=== PATIENT | female | born 1960 | race Caucasian/White ===

== ENCOUNTER 2018-04-17 20:15 | Observation (INO) | payer BC, OTHER, SELFPAY ==
--- OUTSIDE RECORDS SUMMARY | 2018-04-17 20:17 | XMS REPORT | Clinical Summary ---
:1960 Author Organization [facility] Address [address] [place] [address] Care Team Providers Name Role Phone Ken Lloyd MD Primary Care Provider Allergies Active Allergy Reactions Severity Noted Date Comments Tetracycline Anaphylaxis High Medications Medication Sig Dispensed Refills Start Date End Date Status PROVENTIL HFA 90 INHALE 2 PUFFS BY 3 10/17/2017 Active mcg/actuation MOUTH 4 TIMES inhaler DAILY SYMBICORT 0 10/17/2017 Active 160-4.5 mcg/actuation inhaler mirabegron DAILY 0 05/31/2017 Active (MYRBETIQ) 50 mg tablet extended release 24 hr meloxicam Take 15 mg by 0 10/17/2017 Active (MOBIC) 15 mg mouth daily. tablet QSYMIA 15-92 mg TAKE ONE CAPSULE 2 09/22/2017 11/10/2017 Discontinued capsule, ER BY MOUTH EVERY multiphase 24 hr DAY FOR APPETITE SUPPRESSION Active Problems Not on file Encounters Date Type Specialty Care Team Description 11/10/2017 Surgery General Surgery Matilda Mooney LUMBAR EPIDURAL STEROID INJECTION RIGHT L4-5, L5-S1 11/10/2017 Anesthesia Event General Surgery Serena Lozano FNP 11/10/2017 Hospital Encounter General Surgery Matilda Mooney MD after 04/16/2017 Social History Tobacco Use Types Packs/Day Years Used Date Current Every Day Smoker Cigarettes 0.5 20 Smokeless Tobacco: Never Used Alcohol Use Drinks/Week oz/Week Comments Yes occasional Sex Assigned at Date Recorded Not on file Job Start Date Occupation Industry Not on file Not on file Not on file Travel History Travel Start Travel End No recent travel history available. Last Filed Vital Signs Vital Sign Reading Time Taken Blood Pressure 148/66 11/10/2017 10:00 AM CDT Pulse 55 11/10/2017 10:15 AM CDT Temperature 36.6 C (97.8 F) 11/10/2017 8:54 AM CDT Respiratory Rate 18 11/10/2017 10:00 AM CDT Oxygen Saturation 98% 11/10/2017 10:15 AM CDT Inhaled Oxygen Concentration - - Weight 79.4 kg (175 lb) 11/10/2017 7:03 AM CDT Height 154.9 cm (5' 1") 11/10/2017 7:03 AM CDT Body Mass Index 33.07 11/10/2017 7:03 AM CDT Plan of Treatment Health Maintenance Due Date Last Done Comments MMR VACCINES (1 of 1 - Standard 10/17/1963 series) VARICELLA VACCINES (1 of 2 - 2-dose 10/17/1975 adolescent series) CERVICAL CANCER SCREENING 10/17/1983 BREAST CANCER SCREENING 2012 COLON CANCER SCREENING 2012 SHINGRIX VACCINE (1 of 2) 2012 INFLUENZA VACCINE 01/04/2018 HEPATITIS B VACCINES Aged Out No longer eligible based on patient's age to complete this topic IPV VACCINES Aged Out No longer eligible based on patient's age to complete this topic MENINGOCOCCAL VACCINE Aged Out No longer eligible based on patient's age to complete this topic Procedures Procedure Name Priority Date/Time Associated Diagnosis Comments OR FL < 1 HOUR Routine 11/10/2017 8:40 AM Results for this CDT procedure are in the results section. after 04/16/2017 Results OR FL < 1 Hour (11/10/2017 8:40 AM CDT) Narrative Performed At EXAMINATION:OR [place] 1 HOUR [facility] CLINICAL HISTORY: IMPRESSION: Fluoroscopy was provided. No radiologist present.Please see procedure report for discussion of procedure, findings and fluoroscopic time. [facility]-[id number] Procedure Note Interface, Radiology Results Incoming - 11/10/2017 10:26 AM CDT EXAMINATION: OR [place] 1 HOUR CLINICAL HISTORY: IMPRESSION: Fluoroscopy was provided. No radiologist present. Please see procedure report for discussion of procedure, findings and fluoroscopic time. [facility]-[id number] Performing Organization Address City/State/Zipcode Phone Number [facility] [address] [place] [address] after 04/16/2017 Insurance Payer Benefit Plan / Group Subscriber ID Type Phone Address BCBS BCBS CHOICE PPO/FEDERAL EMPL PPO xxxxxxxxxxxx PPO Advance Directives Patient has advance care planning documents on file. For more information, please contact:Juanjo Childress[address] [place] [address]
[2018-04-17] MEDS ORDERED: ASPIRIN 81 MG CHEWABLE TABLET ONE (20:51)
[2018-04-17] MEDS ORDERED: NA CHLORIDE 0.9% 1,000 ML ONE (20:52)
[2018-04-17] MEDS ORDERED: METOPROLOL TAR 25 MG TAB ONE (20:52)
[2018-04-17] MEDS ORDERED: ENOXAPARIN 100 MG/ML SYR SQ ONE (20:52)
[2018-04-17 21:17] LABS: ALT/SGPT 31 U/L (12-78); AST/SGOT 19 U/L (15-37); Albumin 4.2 g/dL (3.4-5.0); Alkaline Phosphatase 102 U/L (45-117); BUN Blood Urea Nitrogen 14 mg/dL (7-18); Bicarbonate 22 mmol/L (21-32); Bilirubin Direct 0.1 mg/dL (0-0.2); Bilirubin Total 0.5 mg/dL (0.2-1.0); Glucose Level 94 mg/dL (74-106); Lipase 123 U/L (73-393); Magnesium 2.1 mg/dL (1.8-2.4); NT PRO-BNP 61 pg/mL (<125); Potassium 3.7 mmol/L (3.5-5.1); Protein, Total 7.9 g/dL (6.4-8.2); Sodium Level 138 mmol/L (136-145); Troponin (Emerg Dept Use Only) < 0.02 ng/mL (0.0-0.045)
[2018-04-17 21:36] LABS: Absolute Lymphocytes (CBC) 3.1 K/uL (0.7-4.9); Absolute Monocytes 0.5 K/uL (0.1-1.3); Absolute Neutrophil 4.7 K/uL (1.8-8.0); Basophils % 0.8 % (0-1.3); Eosinophils % 1.1 % (0-4.4); Hematocrit 41.1 % (36.0-45.0); Lymphocytes % 36.9 % (15.3-44.8); MCH 31.4 pg (27.0-35.0); MCV 93.4 fL (80-100); MPV 9.3 fL (7.6-11.3); Monocytes % 5.7 % (3.3-12.3); RBC Red Blood Cell Count 4.41 M/uL (3.86-4.86)
--- NOTE | 2018-04-17 21:38 | RAD REPORT ---
EXAM DESCRIPTION: Jessy Single View04/17/2018 8:47 pm CLINICAL HISTORY: Chest pain COMPARISON: 2013 FINDINGS: The lungs appear clear of acute infiltrate. The heart is normal size IMPRESSION: No acute abnormalities displayed
--- NOTE | 2018-04-17 21:43 | EDPHYS ---
Physician Documentation [facility] Name: Salome Walsh Age: 57 yrs Sex: Female : 1960 Arrival Date: 04/17/2018 Time: 20:16 Bed 25 Private MD: ED Physician Js Rodriguez HPI: 04/17 21:33 This 57 yrs old Female presents to ER via Ambulatory with complaints of Chest benjie Pain. 21:33 The patient or guardian reports chest pain that is located primarily in the substernal benjie area, anterior chest wall, left. Onset: just prior to arrival. The pain radiates to jaw, Associated signs and symptoms: The patient has no apparent associated signs or symptoms. The chest pain is described as dull, a heaviness, stabbing. Duration: The patient or guardian reports a single episode, that is now resolved. Modifying factors: The symptoms are alleviated by nothing. the symptoms are aggravated by nothing. Severity of pain: At its worst the pain was mild moderate in the emergency department the pain has resolved and did so just prior to arrival. The patient has experienced similar episodes in the past, a few times. 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 - Social history:: Smoking status: Patient uses tobacco products, denies chronic smoking, but will smoke occasionally, Patient uses alcohol, but reports only rare drinking. Patient/guardian denies using street drugs. - Ebola Screening: : No symptoms or risks identified at this time. - Family history:: not pertinent. ROS: 21:33 Constitutional: Negative for fever, chills, and weight loss, Eyes: Negative for injury, benjie pain, redness, and discharge, ENT: Negative for injury, pain, and discharge, Neck: Negative for injury, pain, and swelling, Respiratory: Negative for shortness of breath, cough, wheezing, and pleuritic chest pain, Abdomen/GI: Negative for abdominal pain, nausea, vomiting, diarrhea, and constipation, Back: Negative for injury and pain, : Negative for injury, bleeding, discharge, and swelling, MS/Extremity: Negative for injury and deformity, Skin: Negative for injury, rash, and discoloration, Neuro: Negative for headache, weakness, numbness, tingling, and seizure, Psych: Negative for depression, anxiety, suicide ideation, homicidal ideation, and hallucinations, Allergy/Immunology: Negative for hives, rash, and allergies, Endocrine: Negative for neck swelling, polydipsia, polyuria, polyphagia, and marked weight changes, Hematologic/Lymphatic: Negative for swollen nodes, abnormal bleeding, and unusual bruising. 21:33 Cardiovascular: Positive for chest pain, of the chest. Exam: 21:33 Constitutional: This is a well developed, well nourished patient who is awake, alert, benjie and in no acute distress. Head/Face: Normocephalic, atraumatic. Eyes: Pupils equal round and reactive to light, extra-ocular motions intact. Lids and lashes normal. Conjunctiva and sclera are non-icteric and not injected. Cornea within normal limits. Periorbital areas with no swelling, redness, or edema. ENT: Nares patent. No nasal discharge, no septal abnormalities noted. Tympanic membranes are normal and external auditory canals are clear. Oropharynx with no redness, swelling, or masses, exudates, or evidence of obstruction, uvula midline. Mucous membranes moist. Neck: Trachea midline, no thyromegaly or masses palpated, and no cervical lymphadenopathy. Supple, full range of motion without nuchal rigidity, or vertebral point tenderness. No Meningismus. Chest/axilla: Normal chest wall appearance and motion. Nontender with no deformity. No lesions are appreciated. Cardiovascular: Regular rate and rhythm with a normal S1 and S2. No gallops, murmurs, or rubs. Normal PMI, no JVD. No pulse deficits. Respiratory: Lungs have equal breath sounds bilaterally, clear to auscultation and percussion. No rales, rhonchi or wheezes noted. No increased work of breathing, no retractions or nasal flaring. Abdomen/GI: Soft, non-tender, with normal bowel sounds. No distension or tympany. No guarding or rebound. No evidence of tenderness throughout. Back: No spinal tenderness. No costovertebral tenderness. Full range of motion. Female : Normal external genitalia. Skin: Warm, dry with normal turgor. Normal color with no rashes, no lesions, and no evidence of cellulitis. MS/ Extremity: Pulses equal, no cyanosis. Neurovascular intact. Full, normal range of motion. Neuro: Awake and alert, GCS 15, oriented to person, place, time, and situation. Cranial nerves II-XII grossly intact. Motor strength 5/5 in all extremities. Sensory grossly intact. Cerebellar exam normal. Normal gait. Psych: Awake, alert, with orientation to person, place and time. Behavior, mood, and affect are within normal limits. 21:33 Musculoskeletal/extremity: DVT Exam: No signs of deep vein thrombosis. no pain, no swelling, no tenderness, negative Homans' sign noted on exam, no appreciated bluish discoloration, no erythema, no increased warmth. Vital Signs: 20:30 BP 145 / 84; Pulse 74; Resp 16 S; Temp 97.9(O); Pulse Ox 100% on R/A; Weight 86.18 kg bb (R); Height 5 ft. 1 in. (154.94 cm) (R); Pain 10/10; 21:30 BP 138 / 73 RA Sitting (auto/reg); Pulse 60; Resp 16 S; Pulse Ox 100% on R/A; jp3 22:19 BP 143 / 75; Pulse 53; Resp 17; Pulse Ox 99% on R/A; rr5 23:00 BP 125 / 80; Pulse 55; Resp 17; Pulse Ox 99% on R/A; Pain 0/10; rr5 20:30 Body Mass Index 35.90 (86.18 kg, 154.94 cm) MDM: 20:30 Patient medically screened. [facility] 21:35 Data reviewed: vital signs, nurses notes, lab test result(s), EKG, radiologic studies, [facility] CT scan, plain films. 04/17 20:34 Order name: Basic Metabolic Panel [facility] 04/17 20:34 Order name: CBC with Diff [facility] 04/17 20:34 Order name: LFT's [facility] 04/17 20:34 Order name: Magnesium; Complete Time: 21:32 [facility] 04/17 20:34 Order name: NT PRO-BNP; Complete Time: 21:32 [facility] 04/17 20:34 Order name: PT-INR [facility] 04/17 20:34 Order name: Troponin (emerg Dept Use Only); Complete Time: 21:32 [facility] 04/17 20:34 Order name: XRAY Chest (1 view) [facility] 04/17 20:34 Order name: Lipase; Complete Time: 21:32 [facility] 04/17 20:34 Order name: D-Dimer [facility] 04/17 20:35 Order name: Basic Metabolic Panel; Complete Time: 21:32 [facility] 04/17 20:35 Order name: Liver (Hepatic) Function; Complete Time: 21:32 [facility] 04/17 21:04 Order name: Urine Dipstick--Ancillary (enter results) em 04/17 21:41 Order name: Echo with Doppler [facility] 04/17 20:34 Order name: EKG; Complete Time: 20:35 [facility] 04/17 20:34 Order name: Cardiac monitoring; Complete Time: 20:40 [facility] 04/17 20:34 Order name: EKG - Nurse/Tech; Complete Time: 20:41 [facility] 04/17 20:34 Order name: IV Saline Lock; Complete Time: 20:42 [facility] 04/17 20:34 Order name: Labs collected and sent; Complete Time: 20:42 [facility] 04/17 20:34 Order name: O2 Per Protocol; Complete Time: 20:41 [facility] 04/17 20:34 Order name: O2 Sat Monitoring; Complete Time: 20:41 [facility] 04/17 20:35 Order name: Urine Dipstick-Ancillary (obtain specimen); Complete Time: 21:00 [facility] 04/17 21:41 Order name: CONS Physician Consult EDMS Administered Medications: 20:50 Drug: Aspirin Chewable Tablet 324 mg Route: PO; rr5 23:34 Follow up: Response: No adverse reaction rr5 20:50 Drug: Lopressor 25 mg Route: PO; rr5 23:34 Follow up: Response: No adverse reaction rr5 20:55 Drug: Lovenox 1 mg/kg Route: Sub-Q; Site: left lower abdomen; rr5 23:34 Follow up: Response: No adverse reaction rr5 21:00 Drug: NS 0.9% 1000 ml Route: IV; Rate: 125 ml/hr; Site: left antecubital; rr5 23:00 Follow up: IV Status: Infusion continued upon admission; IV Intake: 400ml rr5 Disposition: 04/17/18 21:37 Hospitalization ordered by Sonia Fang for Observation. Preliminary diagnosis are Other chest pain, Essential (primary) hypertension, Tobacco abuse counseling, Tobacco use. - Bed requested for Telemetry/MedSurg (observation). - Status is Observation. rr5 - Condition is Stable. - Problem is new. - Symptoms have improved. UTI on Admission? No Signatures: Dispatcher [employer] EDJs Pascal MD MD cha Ballard, Brenda, RN RN Catarina Ennis RN RN Geovanny Ferrer RN RN rr5 Corrections: (The following items were deleted from the chart) 21:49 21:37 Hospitalization Ordered by Sonia Fang MD for Observation. Preliminary cg diagnosis is Other chest pain; Essential (primary) hypertension; Tobacco abuse counseling; Tobacco use. Bed requested for Telemetry/MedSurg (observation). Status is Observation. Condition is Stable. Problem is new. Symptoms have improved. UTI on Admission? No. [facility] 23:33 21:49 04/17/2018 21:37 Hospitalization Ordered by Sonia Fang MD for Observation. rr5 Preliminary diagnosis is Other chest pain; Essential (primary) hypertension; Tobacco abuse counseling; Tobacco use. Bed requested for Telemetry/MedSurg (observation). Status is Observation. Condition is Stable. Problem is new. Symptoms have improved. UTI on Admission? No. cg
--- NOTE | 2018-04-17 21:43 | ER ---
Nurse's Notes [facility] Name: Salome Walsh Age: 57 yrs Sex: Female : 1960 Arrival Date: 04/17/2018 Time: 20:16 Bed 25 Private MD: Diagnosis: Other chest pain;Essential (primary) hypertension;Tobacco abuse counseling;Tobacco use Presentation: 04/17 20:27 Presenting complaint: Patient states: she started having sharp chest pain approx 20 bb mins ago radiating to her back and right jaw with SOB, pt denies nausea, light-headedness. Transition of care: patient was not received from another setting of care. Onset of symptoms was April 17, 2018. Risk Assessment: Do you want to hurt yourself or someone else? Patient reports no desire to harm self or others. Initial Sepsis Screen: Does the patient meet any 2 criteria? No. Patient's initial sepsis screen is negative. Does the patient have a suspected source of infection? No. Patient's initial sepsis screen is negative. Care prior to arrival: aspirin 81 mg x 1. 20:27 Method Of Arrival: Ambulatory bb 20:27 Acuity: FRED 3 bb Triage Assessment: 21:15 General: Appears in no apparent distress. comfortable, Behavior is calm, cooperative. rr5 21:15 Pain: Complains of pain in chest Pain radiates to back and right jaw Pain currently is rr5 5 out of 10 on a pain scale. Quality of pain is described as aching. EENT: No signs and/or symptoms were reported regarding the EENT system. Neuro: Level of Consciousness is awake, alert, obeys commands, Oriented to person, place, time, situation. Cardiovascular: Reports chest pain, Capillary refill < 3 seconds Patient's skin is warm and dry. Respiratory: Airway is patent. GI: No signs and/or symptoms were reported involving the gastrointestinal system. : No signs and/or symptoms were reported regarding the genitourinary system. Derm: Skin is intact, Skin is dry, Skin is pink, warm \T\ dry. Musculoskeletal: No signs and/or symptoms reported regarding the musculoskeletal system. Capillary refill < 3 seconds, Range of motion: intact in all extremities. 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 - Social history:: Smoking status: Patient uses tobacco products, denies chronic smoking, but will smoke occasionally, Patient uses alcohol, but reports only rare drinking. Patient/guardian denies using street drugs. - Ebola Screening: : No symptoms or risks identified at this time. - Family history:: not pertinent. Screenin:40 Abuse screen: Denies threats or abuse. Denies injuries from another. Nutritional rr5 screening: No deficits noted. Tuberculosis screening: No symptoms or risk factors identified. Fall Risk Total Abel Fall Scale indicates No Risk (0-24 pts). Assessment: 21:15 General: Appears in no apparent distress. comfortable, Behavior is calm, cooperative. rr5 21:15 Pain: Complains of pain in chest Pain radiates to back and right jaw Pain currently is rr5 5 out of 10 on a pain scale. Quality of pain is described as aching, Pain began 1 hour ago. Is intermittent, Aggravated by increased activity. Neuro: Level of Consciousness is awake, alert, obeys commands, Oriented to person, place, time, situation. Cardiovascular: Reports chest pain, Capillary refill < 3 seconds Patient's skin is warm and dry. Respiratory: Airway is patent. GI: No signs and/or symptoms were reported involving the gastrointestinal system. : No signs and/or symptoms were reported regarding the genitourinary system. EENT: No signs and/or symptoms were reported regarding the EENT system. Derm: No signs and/or symptoms reported regarding the dermatologic system. Musculoskeletal: Capillary refill < 3 seconds, Range of motion: intact in all extremities. 23:00 Reassessment: Patient appears in no apparent distress at this time. Patient and/or rr5 family updated on plan of care and expected duration. Pain level reassessed. Patient is alert, oriented x 3, equal unlabored respirations, skin warm/dry/pink. no complaints made, in comfortable lying position. Patient denies pain at this time. Patient states feeling better. Patient states symptoms have improved. Vital Signs: 20:30 BP 145 / 84; Pulse 74; Resp 16 S; Temp 97.9(O); Pulse Ox 100% on R/A; Weight 86.18 kg bb (R); Height 5 ft. 1 in. (154.94 cm) (R); Pain 10/10; 21:30 BP 138 / 73 RA Sitting (auto/reg); Pulse 60; Resp 16 S; Pulse Ox 100% on R/A; jp3 22:19 BP 143 / 75; Pulse 53; Resp 17; Pulse Ox 99% on R/A; rr5 23:00 BP 125 / 80; Pulse 55; Resp 17; Pulse Ox 99% on R/A; Pain 0/10; rr5 20:30 Body Mass Index 35.90 (86.18 kg, 154.94 cm) bb ED Course: 20:16 Patient arrived in ED. al2 20:28 Triage completed. bb 20:30 Js Rodriguez MD is Attending Physician. benjie 20:30 Arm band placed on Patient placed in an exam room, on a stretcher, on pulse oximetry. bb EKG completed in triage. Results shown to MD. Family accompanied patient. 20:30 EKG done, by ED staff, reviewed by Js Rodriguez MD. cb2 20:35 nurse monitoring on. Pulse ox on. NIBP on. cb2 20:38 Geovanny Ferrer RN is Primary Nurse. rr5 20:40 Initial lab(s) drawn, by me, sent to lab. Inserted saline lock: 22 gauge in left cb2 antecubital area, using aseptic technique. Blood collected. 20:45 Placed in gown. Bed in low position. Call light in reach. Side rails up X 1. Side rails cb2 up X2. Warm blanket given. Pillow given. 20:47 XRAY Chest (1 view) In Process Unspecified. EDMS 21:01 LFT's Sent. jp3 21:01 Basic Metabolic Panel Sent. jp3 21:01 CBC with Diff Sent. jp3 21:01 Magnesium Sent. jp3 21:01 NT PRO-BNP Sent. jp3 21:01 PT-INR Sent. jp3 21:01 Troponin (emerg Dept Use Only) Sent. jp3 21:34 D-Dimer Sent. jp3 21:36 Sonai Fang MD is Hospitalizing Provider. benjie 21:40 IV discontinued, positional, patients discomfort. Patient maintains SpO2 saturation rr5 greater than 95% on room air. 22:00 Inserted saline lock: 20 gauge in right hand, using aseptic technique. rr5 23:02 No provider procedures requiring assistance completed. Patient admitted, IV remains in rr5 place. Administered Medications: 20:50 Drug: Aspirin Chewable Tablet 324 mg Route: PO; rr5 23:34 Follow up: Response: No adverse reaction rr5 20:50 Drug: Lopressor 25 mg Route: PO; rr5 23:34 Follow up: Response: No adverse reaction rr5 20:55 Drug: Lovenox 1 mg/kg Route: Sub-Q; Site: left lower abdomen; rr5 23:34 Follow up: Response: No adverse reaction rr5 21:00 Drug: NS 0.9% 1000 ml Route: IV; Rate: 125 ml/hr; Site: left antecubital; rr5 23:00 Follow up: IV Status: Infusion continued upon admission; IV Intake: 400ml rr5 Intake: 23:00 IV: 400ml; Total: 400ml. rr5 Outcome: 21:37 Decision to Hospitalize by Provider. benjie 23:10 Admitted to Tele accompanied by tech, via stretcher, Report called to wilmar GARCÍA rr5 23:10 Condition: stable 23:10 Instructed on the need for admit. 23:33 Patient left the ED. rr5 Signatures: Dispatcher [employer] EDMS Js Rodriguez MD MD cha Ballard, Brenda, RN RN Jose Armando Brown Angelica al2 Pisarski, Jacob jp3 Geovanny Ferrer RN RN rr5 Corrections: (The following items were deleted from the chart) 22:22 21:15 Pain: Complains of pain in chest Pain does not radiate. Pain currently is 5 out rr5 of 10 on a pain scale. Quality of pain is described as aching, rr5 23:08 21:15 Pain: Complains of pain in chest Pain radiates to face left jaw Pain currently is rr5 5 out of 10 on a pain scale. Quality of pain is described as aching, rr5 23:09 21:15 Pain: Complains of pain in chest Pain radiates to left arm and left jaw Pain rr5 currently is 5 out of 10 on a pain scale. Quality of pain is described as aching, Pain began 1 hour ago. Is intermittent, Aggravated by increased activity, rr5
[2018-04-17 21:56] LABS: Urine Blood NEGATIVE (NEG); Urine Glucose NEGATIVE (NEG); Urine Protein NEGATIVE (NEG); Urine pH 5.5 (5.0-7.0)
[2018-04-17 22:12] LABS: Protime INR 0.94
--- NOTE | 2018-04-17 22:59 | P.HP ---
Certification for Inpatient Patient admitted to: Observation With expected LOS: <2 Midnights Practitioner: I am a practitioner with admitting privileges, knowledge of patient current condition, hospital course, and medical plan of care. Services: Services provided to patient in accordance with Admission requirements found in Title 42 Section 412.3 of the Code of Federal Regulations Patient History Date of Service: 04/17/18 Reason for admission: Chest pain History of Present Illness: Ms Walsh is a 57-year-old woman who came to ER complaining of chest pain. Her symptoms started 20 min prior to arrival, she described pressure-like retrosternal chest pain, radiated to left arm, jaw and back. Intensity of the pain was 10/10. She has never had these symptoms before. She denied any nausea , vomiting, or shortness of breath. At the time of my encounter the patient was chest pain-free. EKG shows nonspecific ST-T abnormalities. Initial troponin I is negative. Allergies Tetracyclines Allergy (Intermediate, Verified 06/01/17 07:13) Anaphylaxis Home medications list reviewed: Yes Home Medications: Albuterol [Proventil] 2 puff IH QID 12/26/12 Budesonide/Formoterol Fumarate [Symbicort 160-4.5 Mcg Inhaler] 2 puff IH BID Mirabegron [Myrbetriq] 50 mg PO DAILY 05/31/17 Omeprazole 20 mg PO DAILY 05/31/17 Phentermine/Topiramate [Qsymia 3.75 mg-23 mg Capsule] 1 each PO DAILY 05/31/17 Polyethylene Glycol 3350 [Miralax] 17 gm PO DAILY 05/31/17 - Past Medical/Surgical History -: Asthma -: Palpitation -: Hysterectomy -: -: Back surgery - Family History Family History: Reviewed- Non-Contributory - Social History Smoking Status: Current every day smoker Counseled patient to stop smoking for: less than 10 minutes Alcohol use: Yes Caffeine use: Yes Place of Residence: Home Review of Systems 10-point ROS is otherwise unremarkable Physical Examination - Physical Exam General: Alert, In no apparent distress HEENT: Atraumatic, PERRLA, Mucous membr. moist/pink, EOMI, Sclerae nonicteric Neck: Supple, 2+ carotid pulse no bruit, No LAD, Without JVD or thyroid abnormality Respiratory: Clear to auscultation bilaterally, Normal air movement Cardiovascular: Regular rate/rhythm, Normal S1 S2 Gastrointestinal: Normal bowel sounds, No tenderness Musculoskeletal: No tenderness Integumentary: No rashes Neurological: Normal gait, Normal speech, Normal strength at 5/5 x4 extr, Normal tone, Normal affect Lymphatics: No axilla or inguinal lymphadenopathy - Studies Laboratory Data (last 24 hrs) 04/17/18 20:40: PT 11.1, INR 0.94 04/17/18 20:40: WBC 8.5, Hgb 13.8, Hct 41.1, Plt Count 281 04/17/18 20:40: Sodium 138, Potassium 3.7, BUN 14, Creatinine 0.80, Glucose 94, Magnesium 2.1, Total Bilirubin 0.5, AST 19, ALT 31, Alkaline Phosphatase 102, Lipase 123 Assessment and Plan - Problems (Diagnosis) (1) Chest pain Current Visit: Yes Status: Acute Qualifiers: Chest pain type: precordial pain Qualified Code(s): R07.2 - Precordial pain (2) Asthma Current Visit: Yes Status: Acute Qualifiers: Asthma severity: unspecified severity Asthma persistence: unspecified Asthma complication type: unspecified Qualified Code(s): J45.909 - Unspecified asthma, uncomplicated - Plan Will admit the patient due to typical chest pain. Initial troponin I is negative , EKG shows nonspecific ST-T abnormality. Will order serial cardiac enzymes, EKG, echo, vault installer evaluation. Discharge Plan: Home - Advance Directives Does patient have a Living Will: No Does patient have a Durable POA for Healthcare: No - Code Status/Comfort Care Code Status Assessed: Yes Code Status: Full Code
[2018-04-17] MEDS ORDERED: ACETAMINOPHEN 500 MG TAB PO PRN (23:40)
[2018-04-17] MEDS ORDERED: ONDANSETRON 4 MG/2 ML VIAL IV PRN (23:40)
[2018-04-17 23:45] VITALS: BMI 37.0
[2018-04-18 02:29] LABS: Urine Appearance CLEAR; Urine Bilirubin NEGATIVE (NEG); Urine Blood NEGATIVE (NEG); Urine Color YELLOW; Urine Glucose NEGATIVE (NEG); Urine Protein NEGATIVE (NEG); Urine Specific Gravity <=1.005 (1.005-1.030); Urine Urobilinogen 0.2 mg/dL (0.2-1.0)
[2018-04-18 02:34] LABS: Urine Microscopic Reflex ORDER UMIC
[2018-04-18 02:36] LABS: Urine Bacteria <20 /HPF (<20); Urine Culture Reflex Order NOT NEEDED; Urine RBC NONE SEEN /HPF (NONE SEEN)
--- NOTE | 2018-04-18 07:14 | EKG ---
Test Date: 2018-04-17 Test Time: 20:26:27 Operator Technician: SHABNAM MEASUREMENT RESULTS: Intervals: Rate: 74 MT: 154 QRSD: 92 QT: 394 QTc: 437 Slater: P: 39 MT: 154 QRS: 13 T: 50 INTERPRETIVE STATEMENTS: Normal sinus rhythm Nonspecific ST and T wave abnormality Abnormal ECG Compared to ECG 06/01/2017 10:36:51 ST (T wave) deviation now present Sinus bradycardia no longer present Electronically Signed On 04-18-18 07:13:29 [employer] by Silvano Chambers
[2018-04-18] MEDS ORDERED: INFLUENZA VACCINE (for 3y+) 0.5 ML DOSE IMVAC ONE (08:00)
[2018-04-18] MEDS: ASPIRIN 81 MG CHEWABLE TABLET PO SCH (08:00)
[2018-04-18] MEDS: ENOXAPARIN 40 MG/0.4 ML SQ SCH (08:00)
[2018-04-18 09:40] LABS: Absolute Lymphocytes (CBC) 3.1 K/uL (0.7-4.9); Absolute Monocytes 0.4 K/uL (0.1-1.3); Absolute Neutrophil 2.4 K/uL (1.8-8.0); Eosinophils % 2.3 % (0-4.4); Hematocrit 41.6 % (36.0-45.0); Lymphocytes % 50.3 % (15.3-44.8); MCH 31.4 pg (27.0-35.0); MCV 92.6 fL (80-100); MPV 9.1 fL (7.6-11.3); Monocytes % 7.3 % (3.3-12.3); RBC Red Blood Cell Count 4.49 M/uL (3.86-4.86)
[2018-04-18 11:06] LABS: Blood Morphology Comment NOT SEEN (NOT SEEN); Platelet Estimate ADEQ
--- NOTE | 2018-04-18 13:13 | CON ---
Date of Consultation: 04/18/[address] Barboza's service for chest pain on 04/17/2018. I saw the patient on 04/18/2018. History Of Present Illness: Ms. Walsh is a 57-year-old white woman without any past cardiac history or medical history. She does smoke and has a family history of heart disease. She came in with kristie p chest pain in the middle of her chest that radiated to the back and radiated to the back of the nec k. No nausea, vomiting, diaphoresis, shortness of breath, PND, orthopnea, pedal edema, palpitations, or syncope. She has already had a negative EKG, negative chest x-ray, negative troponin. She is on aspirin, Lovenox, and metoprolol for now. Telemetry is normal. She is allergic to tetracycline. Past Medical History: Include asthma and palpitations. Medications: At home include Symbicort and inhalers. Family History: Positive for heart disease in her father in his 50s. Social History: Positive for tobacco. Physical Examination: Vital Signs: She weighed 196 pounds. Vital signs were stable. Afebrile. HEENT: Negative. Neck: Supple with no bruit. Chest: Clear to auscultation and percussion. Cardiac: Revealed a regular rhythm and rate without any murmurs, gallops, or rubs. Abdomen: Benign. Extremities: Revealed no clubbing, cyanosis, or edema. Diagnostic Data: All normal. Impression And Plan: Atypical chest pain, 30 minutes duration, normal enzymes, normal x-ray and EKG. Pain radiated to the back. Could be gastroesophageal reflux disease or spasm. I am concerned that it has radiated to her neck. I think we need to get an echocardiogram and a stress Cardiolite befor e she goes home. KOBI/RADHIKA Voice ID: [id number] Report ID: [id number]
--- NOTE | 2018-04-18 15:02 | EKG ---
Test Date: 2018-04-18 Test Time: 07:34:28 Back Tender Insulation Board: ALEX MEASUREMENT RESULTS: Intervals: Rate: 53 NE: 206 QRSD: 86 QT: 444 QTc: 416 [place]: P: 69 NE: 206 QRS: 34 T: 101 INTERPRETIVE STATEMENTS: Sinus bradycardia Nonspecific ST and T wave abnormality Abnormal ECG Compared to ECG 04/17/2018 20:26:27 Sinus rhythm no longer present ST (T wave) deviation still present Electronically Signed On 04-18-18 15:00:55 P[employer]YER by Joce Cloud
--- NOTE | 2018-04-18 15:13 | ECHO ---
HEIGHT: 5 ft 1 in WEIGHT: 196 lb 1.6 oz DATE OF STUDY: 04/18/[address]: Js Rodriguez MD 2-DIMENSIONAL: YES M.MODE: YES DOPPLER: YES COLOR FLOW: YES TDS: PORTABLE: DEFINITY: BUBBLE STUDY: DIAGNOSIS: CHEST PAIN CARDIAC HISTORY: CATHERIZATION: NO SURGERY: NO PROSTHETIC VALVE: NO PACEMAKER: NO MEASUREMENTS (cm) DIASTOLIC (NORMALS) SYSTOLIC (NORMALS) IVSd 1.0 (0.6-1.2) LA Diam 3.7 (1.9-4.0) LVEF 66% LVIDd 4.8 (3.5-5.7) LVIDs 3.1 (2.0-3.5) %FS 36% LVPWd 1.0 (0.6-1.2) Ao Diam 2.9 (2.0-3.7) 2 DIMENSIONAL ASSESSMENT: RIGHT ATRIUM: NORMAL LEFT ATRIUM: NORMAL RIGHT VENTRICLE: NORMAL LEFT VENTRICLE: NORMAL TRICUSPID VALVE: NORMAL MITRAL VALVE: NORMAL PULMONIC VALVE: NORMAL AORTIC VALVE: NORMAL PERICARDIAL EFFUSION: NONE AORTIC ROOT: NORMAL LEFT VENTRICULAR WALL MOTION: NORMAL DOPPLER/COLOR FLOW: TRACE AORTIC REGURGITATION, AND TRICUSPID REGURGITATION. COMMENTS: TRACE TRICUSPID REGURGITATION, AND AORTIC REGURGITATION. NORMAL LEFT VENTRICULAR SIZE AND FUNCTION. NO WALL MOTION ABNORMALITY. NO EFFUSION. TECHNOLOGIST: ELVIA PEOPLES
--- NOTE | 2018-04-18 15:28 | PN ---
Date of Progress Note: 04/18/2018 Subjective: Patient seen and examined. Chart reviewed and case discussed with RN. The patient states her chest pain has improved. Review of Systems: Negative except as above. Medications: List reviewed. Physical Examination: Vital Signs: Temperature 97.2, heart rate 51, blood pressure 116/60, respirations 20, O2 97% on room air. General: Awake, alert, oriented x3. She appears older than stated age, ill- appearing female, obese. CV: S1, S2. Regular rate and rhythm. No murmurs. Respiratory: Clear to auscultation bilaterally. No wheezing or stridor. Gastrointestinal: Abdomen is soft, nontender, nondistended. Positive bowel sounds. Extremities: No clubbing, cyanosis, or edema. Neurologic: Nonfocal. Laboratory Data: Troponin less than 0.02 x3. Triglyceride 117, cholesterol 180 , LDL 102, HDL 55. WBC 6.2, H and H 14.1 and 41.6, platelets 270, neutrophils 39%. Assessment: A 57-year-old female with: 1. Chest pain, acute coronary syndrome ruled out. 2. Intermittent asthma. We will continue with albuterol inhalers. 3. Obesity, BMI 37.1. 4. Possible sick sinus syndrome. The patient has had Holter monitor placement previously. Follows with Dr. Saldana. No abnormality seen. Plan: We will obtain cardiac stress test and echocardiogram. Appreciate Dr. Cloud's input. We will continue to monitor on cardiac telemetry. Continue chest pain guidelines. Patient is bradycardic. Hold beta marv. Likely discharge once stress test is negative. JHONNY Voice ID: [id number] Report ID: [id number] MTDD
[2018-04-18] MEDS: HOME MED 1 EA UNK (Budesonide/Formoterol Fumarate [Symbicort 160-4.5 Mcg Inhaler] 2 PUFF) IH SCH (20:13)
[2018-04-18] MEDS: HOME MED 1 EA UNK (Varenicline Tartrate [Chantix] 1 MG) PO SCH (20:14)
[2018-04-18] MEDS ORDERED: ALBUTEROL IH SCH (21:00)
[2018-04-19 02:02] VITALS: O2SAT 98
[2018-04-19] MEDS: ASPIRIN 81 MG CHEWABLE TABLET PO SCH (08:03)
[2018-04-19] MEDS: ENOXAPARIN 40 MG/0.4 ML SQ SCH (08:03)
[2018-04-19] MEDS ORDERED: REGADENOSON 0.4 MG/5 ML SYR IV ONE (08:30)
[2018-04-19] MEDS ORDERED: HOME MED 1 EA UNK (Linaclotide [Linzess] 290 MCG) PO SCH (09:00)
[2018-04-19] MEDS: HOME MED 1 EA UNK (Varenicline Tartrate [Chantix] 1 MG) PO SCH (09:00)
[2018-04-19] MEDS: HOME MED 1 EA UNK (Budesonide/Formoterol Fumarate [Symbicort 160-4.5 Mcg Inhaler] 2 PUFF) IH SCH (09:00)
--- NOTE | 2018-04-19 10:04 | RAD REPORT ---
EXAM DESCRIPTION: NM - Rest Stress Cardiac Imaging - 04/19/2018 9:55 am CLINICAL HISTORY: CP Chest pain. COMPARISON: No comparisons TECHNIQUE: The patient was administered approximately 10mCi of Tc 99m Sestamibi prior to resting SPE CT imaging of the heart. The patient was then administered approximately 30 mCi of Tc 99m Sestamibi f ollowing exercise or pharmacologic stress. Multiplanar SPECT images were reviewed. FINDINGS: No stress induced ischemic defect is seen to suggest stress induced ischemia. No fixed def ect is seen to suggest hibernating myocardium or scarred myocardium. The end diastolic volume is 84 ml, the end systolic volume is 35 ml, and the ejection fraction is 58 %. IMPRESSION: No stress induced ischemia.
[2018-04-19 10:51] VITALS: TEMP 97.6
--- NOTE | 2018-04-19 11:33 | TREADPHA ---
DX: CHEST PAIN Date of Study: 04/19/2018 Ht: 5 1 Wt: 196 lb 0 oz Consulting Physician: JAVED MEDICATIONS: TYLENOL, ASPIRIN, LOVENOX, ZOFRAN HISTORY: 57 YEAR OLD FEMALE WITH COMPLAINTS OF CHEST PAIN. MEDICAL HISTORY OF ASTHMA, PALPITATIONS AND A SMOKER OF ONE PACK A DAY. PHYSICIAL EXAMINATION: RESTING B.P.: 109/80 RESTING H.R.: 56 RESTING EKG: SINUS BRADYCARDIA, OTHERWISE NORMAL PROTOCOL: LEXISCAN EXERCISE TIME: 3:30 B.P. AT PEAK STRESS: 114/88 IMPRESSION: LEXISCAN INJECTED. CARDIOLITE INJECTED PER PROTOCOL. SEE NUCLEAR MEDICINE REPORT. NO SUPRAVENTRICUALR OR VENTRICULAR TACHYCARDIA. NO CHEST PAIN NOTED. NON DIAGNOSTIC EKG LEXISCAN STRESS.
[2018-04-19 12:23] VITALS: BP 117/68
--- NOTE | 2018-04-20 14:13 | DS ---
Date of Discharge: 04/19/2018 Consultants: Silvano Chambers MD, with Cardiology Procedures: Cardiac stress test on 04/19/2018, negative for a stress-induced ischemia; echocardiogra m, EF 66%. Discharge Diagnoses: 1.Chest pain, acute coronary syndrome ruled out. 2.Gastroesophageal reflux disease. We will give trial of PPI. 3.Acute asthma. Continue albuterol inhaler. 4.Obesity, BMI 37.1. 5.Palpitations. The patient has had previous Holter monitor placement with no abnormalities seen, lukas patel with Dr. Saldana. Hospital Course: The patient is a 57-year-old female with past medical history of asthma, palpitatio ns, gastroesophageal reflux disease, comes in with chest pain. The patient was admitted to rule out ACS. Her cardiac enzymes were negative. Lipid panel was within normal limits. D-dimer was also neg ative. The patient was seen by Cardiology. A stress test was ordered which did not show any stress- induced ischemia. Her ejection fraction was normal. She did have some mild tricuspid regurgitation. The patient does report gastroesophageal reflux disease, recently stopped taking her Zantac on a re gular basis, takes it as needed. The patient has seen Dr. Sarkar in the past and has had a colonosco py and EGD done last over a year ago. The patient will need a trial of PPI as her chest pain may be atypical related to her GI symptoms. If the patient has improvement with PPIs, she will need to foll ow up with her GI doctor for repeat EGD and continue treatment under his discretion. The patient was then cleared for discharge. Her symptoms resolved. The patient was sent home in a stable condition . Activity: As tolerated. Medications: As per medication reconciliation list. Followup: Follow up with primary care physician in 2 to 3 days. Follow up with warp starter, Dr. Abdiel myles in 2 weeks. Follow up with GI, Dr. Sarkar in 2 to 4 weeks. Return to ER for worsening conditi on. Physical Examination: General: Awake, alert, oriented x3, not in acute distress. Obese female. CV: S1 and S2. No murmurs. Respiratory: Moving air well bilaterally. No wheezing. Gastrointestinal: Abdomen is soft, nontender, and nondistended. Positive bowel sounds. Extremities: No clubbing, cyanosis, or edema. Neuro: Nonfocal. SA/MODL Voice ID: [id number] Report ID: [id number]
== END 2018-04-19 13:59 | disposition home or self-care (01) ==
LOC: ER 20:15 → ERHOLD 21:38 → 4TH 23:11
PROVIDERS: ADMIT Internal Medicine; ATTEND Internal Medicine
DX: R07.9 Chest pain, unspecified (principal); K21.9 Gastro-esophageal reflux disease without esophagitis; J45.20 Mild intermittent asthma, uncomplicated; E66.9 Obesity, unspecified; Z68.37 Body mass index [BMI] 37.0-37.9, adult; R00.2 Palpitations
CPT/HCPCS: 36415; 71045; 78452; 80048; 80061; 80076; 81003; 81015; 83690; 83735; 83880; 84484; 85025; 85379; 85610; 93005; 93017; 93306; 96360; 96361; 96372; 99285; A9500; G0378; J1650; J2785; J7030

== ENCOUNTER 2018-11-07 06:09 | Day surgery (SDC) | payer BC ==
[2018-11-06 14:02] LABS: Urine Appearance CLEAR; Urine Bilirubin NEGATIVE (NEG); Urine Blood NEGATIVE (NEG); Urine Color YELLOW; Urine Glucose NEGATIVE (NEG); Urine Protein NEGATIVE (NEG); Urine Specific Gravity 1.015 (1.005-1.030); Urine Urobilinogen 0.2 mg/dL (0.2-1.0); Urine pH 5.5 (5.0-7.0)
[2018-11-06 14:05] LABS: Urine Microscopic Reflex NO UMIC
[~2018-11-07 06:09] MED LIST: Ringers Lactate 1,000 ML IV SCH
--- OUTSIDE RECORDS SUMMARY | 2018-11-07 06:11 | XMS REPORT | Clinical Summary ---
:1960 Author Organization [facility] Address [address] [place] [address] Care Team Providers Name Role Phone Ken Lloyd MD Primary Care Provider Allergies Active Allergy Reactions Severity Noted Date Comments Tetracycline Anaphylaxis High Medications Medication Sig Dispensed Refills Start Date End Date Status PROVENTIL HFA 90 INHALE 2 PUFFS BY 3 10/17/2017 Active mcg/actuation MOUTH 4 TIMES inhaler DAILY SYMBICORT 0 10/17/2017 Active 160-4.5 mcg/actuation inhaler UNABLE TO FIND Take by mouth 0 Active once. Med Name: Qysimia mirabegron DAILY 0 05/31/2017 06/19/2018 Discontinued (MYRBETIQ) 50 mg tablet extended release 24 hr QSYMIA 15-92 mg TAKE ONE CAPSULE 2 09/22/2017 11/10/2017 Discontinued capsule, ER BY MOUTH EVERY multiphase 24 hr DAY FOR APPETITE SUPPRESSION meloxicam Take 15 mg by 0 10/17/2017 06/19/2018 Discontinued (MOBIC) 15 mg mouth daily. 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) 05/18/2018 Telephone Radiology Nisha Bonilla, RAQUEL 05/15/2018 Hospital Encounter Radiology Uvaldo Rubalcava Spinal stenosis lester Hernandez MD lumbar region, unspecified whether neurogenic claudication present 05/15/2018 Hospital Encounter Radiology Uvaldo Rubalcava Spinal stenosis lester Hernandez MD lumbar region, unspecified whether neurogenic claudication present 05/11/2018 Office Visit Orthopedic Surgery Leif Beltran, Trochanteric bursitis of both hips (Primary Dx) 05/08/2018 Transcribe Orders Radiology Uvaldo Rubalcava Spinal stenosis lester Hernandez MD lumbar region, unspecified whether neurogenic claudication present (Primary Dx) 05/08/2018 Transcribe Orders Radiology Uvaldo Rubalcava Spinal stenosis lester Hernandez MD lumbar region, unspecified whether neurogenic claudication present (Primary Dx) 11/10/2017 Surgery General Surgery Matilda Mooney MD LUMBAR EPIDURAL STEROID INJECTION RIGHT L4-5, L5-S1 11/10/2017 Anesthesia Event General Surgery Serena Lozano WORM RAISER 11/10/2017 Hospital Encounter General Surgery Matilda Mooney MD after 11/06/2017 Family History Medical History Relation Name Comments Heart attack Father Stroke Paternal Uncle Relation Name Status Comments Father Paternal Uncle Social History Tobacco Use Types Packs/Day Years Used Date Former Smoker Cigarettes 0.5 20 Smokeless Tobacco: Never Used Comments: recently quit in April, Alcohol Use Drinks/Week oz/Week Comments Yes occasional Sex Assigned at Date Recorded Not on file Job Start Date Occupation Industry Not on file Not on file Not on file Travel History Travel Start Travel End No recent travel history available. Last Filed Vital Signs Vital Sign Reading Time Taken Blood Pressure 125/67 05/15/2018 11:09 AM BUILDING SERVICES SUPERVISOR Pulse 60 05/15/2018 11:09 AM BUILDING SERVICES SUPERVISOR Temperature 36.5 C (97.7 F) 05/15/2018 8:36 AM BUILDING SERVICES SUPERVISOR Respiratory Rate 16 05/15/2018 11:09 AM BUILDING SERVICES SUPERVISOR Oxygen Saturation 100% 05/15/2018 11:09 AM BUILDING SERVICES SUPERVISOR Inhaled Oxygen Concentration - - Weight 86.2 kg (190 lb) 05/15/2018 8:36 AM BUILDING SERVICES SUPERVISOR Height 157.5 cm (5' 2") 05/15/2018 8:36 AM BUILDING SERVICES SUPERVISOR Body Mass Index 34.75 05/15/2018 8:36 AM BUILDING SERVICES SUPERVISOR Plan of Treatment Health Maintenance Due Date Last Done Comments BREAST CANCER SCREENING 2012 COLON CANCER SCREENING 2012 SHINGLES VACCINES (#1) 2012 INFLUENZA VACCINE 01/04/2019 Procedures Procedure Name Priority Date/Time Associated Diagnosis Comments ECG PRE/POST OP Routine 06/19/2018 12:22 Results for this PM [employer]ILDING SERVICES SUPERVISOR procedure are in the results section. ESTIMATED GFR Routine 06/19/2018 12:14 Results for this PM [employer] SERVICES SUPER[employer]OR procedure are in the results section. HC COMPLETE BLD COUNT Routine 06/19/2018 12:14 Cerebral aneurysm, Results for this W/AUTO DIFF PM [employer]ILDING SERVICES SUPERVISOR nonruptured procedure are in the results section. BASIC METABOLIC PANEL Routine 06/19/2018 12:14 Cerebral aneurysm, Results for this PM [employer]ING SERVICES SUPERVISOR nonruptured procedure are in the results section. PARTIAL THROMBOPLASTIN Routine 06/19/2018 12:14 Cerebral aneurysm, Results for this TIME (PTT) PM BUILDING SERVICES SUPERVISOR nonruptured procedure are in the results section. PROTHROMBIN TIME WITH Routine 06/19/2018 12:14 Cerebral aneurysm, Results for this INR PM [employer]ILDING SERVICES SUPER[employer]OR nonruptured procedure are in the results section. CT HEAD EXTERNAL STUDY Routine 05/18/2018 9:06 Results for this AM [employer]ING SERVICES SUPERVISOR procedure are in the results section. CT POST MYELOGRAM Routine 05/15/2018 10:14 Spinal stenosis of Results for this LUMBAR AM [employer]ILDING SERVICES SUPERVISOR lumbar region, procedure are in unspecified whether the results neurogenic section. claudication present IR MYELOGRAM LUMB INCL Routine 05/15/2018 10:05 Spinal stenosis of Results for this INJ W S&I AM BUILDING SERVICES SUPERVISOR lumbar region, procedure are in unspecified whether the results neurogenic section. claudication present XR PELVIS 3+ VW Routine 05/11/2018 8:52 Pain of both hip Results for this AM BUILDING SERVICES SUPERVISOR joints procedure are in the results section. OR FL < 1 HOUR Routine 11/10/2017 8:40 Results for this AM CDT procedure are in the results section. after 11/06/2017 Results ECG Pre/Post Op (06/19/2018 12:22 PM BUILDING SERVICES SUPERVISOR) Ventricular rate 68 [facility] Atrial rate 68 [facility] MN interval 162 [facility] QRSD interval 84 [facility] QT interval 406 [facility] QTC interval 431 [facility] P axis 1 52 [facility] QRS axis 1 28 [facility] T wave axis 77 [facility] EKG impression Normal sinus rhythm-Nonspecific T wave abnormality-Abnormal ECG -In automated comparison with ECG of 27-FEB-2013 08:16,-Nonspecific T wave abnormality, improved in Anterior leads-QT has shortened-Electronically Signed By Padilla Varghese ([id number]) on [facility] 06/19/2018 9:15:48 PM Specimen Narrative Performed At Performing Organization Address City/[facility]/Zipcode Phone Number [facility] [address] [place] [address] Estimated GFR (06/19/2018 12:14 PM BUILDING SERVICES SUPERVISOR) Pathologist [facility] Estimated GFR 89 mL/min/1.73 ANAM MCNAMARA Comment: [address] CatergoryUnitsInterpretation G1 >=90 Normal or high G2 60-89Mildly decreased [id number] to moderately decreased [id number] to severely decreased G4 15-29Severely decreased G5 <15Kidney failure The eGFR was calculated using the Chronic Kidney Disease Epidemiology Collaboration (CKD-EPI) equation. Interpretation is based on recommendations of the National Kidney Foundation-Kidney Disease Outcomes Quality Initiative (NKF-KDOQI) published in 2014. Specimen Plasma specimen Performing Organization Address City/[facility] Phone Number [facility] DEPARTMENT OF PATHOLOGY AND [address] [place] [address] [address] Partial thromboplastin time, activated (06/19/2018 12:14 PM BUILDING SERVICES SUPERVISOR) Pathologist [facility] PTT 27.4 23.0 - 36.0 [place] NAIMA Comment: [facility] PTT therapeutic range for unfractionated heparin is 61.0-112.0 seconds which corresponds to Anti-Xa 0.3-0.7 U/ml. Specimen Blood Performing Organization Address City/[facility]/Zipcode Phone Number [facility] DEPARTMENT OF PATHOLOGY AND [address] [place] [address] [address] Prothrombin time with INR (06/19/2018 12:14 PM BUILDING SERVICES SUPERVISOR) Pathologist [facility] Prothrombin time 12.2 11.5 - 14.5 [facility] INR 0.9 [place] Comment: NAIMA The International Normalized Ratio (INR) is a therapeutic HOSPITAL monitoring tool for patients who are stable on oral anticoagulant therapy. An INR of 2.0-3.0 is suggested for deep vein thrombosis/pulmonary embolism. Specimen Blood Performing Organization Address City/[facility]/Zipcode Phone Number [facility] DEPARTMENT OF PATHOLOGY AND [address] [place] [address] [address] CBC with platelet and differential (06/19/2018 12:14 PM BUILDING SERVICES SUPERVISOR) WBC 5.57 4.50 - 11.00 [facility] k/uL HOSPITAL RBC 4.56 4.20 - 5.50 [facility] m/uL [facility] HGB 13.9 12.0 - 16.0 [facility] g/dL HOSPITAL HCT 43.9 37.0 - 47.0 % [facility] MCV 96.3 82.0 - 100.0 [facility] MCH 30.5 27.0 - 34.0 pg [facility] MCHC 31.7 31.0 - 37.0 [facility] RDW - SD 48.0 37.0 - 55.0 fL [facility] MPV 10.7 8.8 - 13.2 fL [facility] Platelet count 281 150 - 400 k/uL [facility] Nucleated RBC 0.00 /100 WBC [facility] Neutrophils 50.1 39.0 - 69.0 % [facility] Lymphocytes 40.0 25.0 - 45.0 % [facility] Monocytes 6.1 0.0 - 10.0 % [facility] Eosinophils 3.1 0.0 - 5.0 % [facility] Basophils 0.5 0.0 - 1.0 % [facility] Immature granulocytes 0.2Comment: 0.0 - 1.0 % [facility] "Immature HOSPITAL granulocytes" (promyelocytes , myelocytes, metamyelocytes ) Specimen Blood Performing Organization Address City/State/Zipcode Phone Number [facility] DEPARTMENT OF PATHOLOGY AND [address] [place] [address] [address] Basic metabolic panel (06/19/2018 12:14 PM BUILDING SERVICES SUPERVISOR) Pathologist [facility] Sodium 138 135 - 148 mEq/L [facility] Potassium 4.6 3.5 - 5.0 mEq/L [facility] Chloride 102 98 - 112 mEq/L [facility] CO2 24 24 - 31 mEq/L [facility] Anion gap 12@ANIO 7 - 15 mEq/L [facility] BUN 14 6 - 20 mg/dL [facility] Creatinine 0.75 0.50 - 0.90 mg/dL [facility] Glucose 89 65 - 99 mg/dL [facility] Calcium 9.7 8.3 - 10.2 mg/dL [facility] Specimen Plasma specimen Performing Organization Address City/State/Zipcode Phone Number [facility] DEPARTMENT OF PATHOLOGY AND [address] [place] [address] GENOMIC MEDICINE [facility] [address] [place] [address] CT Head External Study (05/18/2018 9:06 AM BUILDING SERVICES SUPERVISOR) Specimen Narrative Performed At This exam was not acquired at a [facility] facility and has not been [facility] interpreted by a [facility] Provider.The exam was imported into our imaging system for comparisons purposes. Performing Organization Address City/[facility] Phone Number [facility] [address] [place] [address] CT Post Myelogram Lumbar (05/15/2018 10:14 AM BUILDING SERVICES SUPERVISOR) Specimen Narrative Performed At EXAMINATION: CT POST MYELOGRAM LUMBAR [facility] CLINICAL HISTORY: M48.061 Spinal stenosislumbar region without neurogenic claudication, lumbar stenosis COMPARISON:None TECHNIQUE: Axial postintrathecal contrast enhanced images of the spine were obtained with coronal and sagittal MIP reconstructed imaging. CT imaging was performed with iterative reconstruction technique and/or automated exposure control to reduce radiation dose. FINDINGS: Soft tissue shows some scattered lymph nodes in the retroperitoneum which are subcentimeter in size and nonspecific. No grossly enlarged adenopathy, mass or fluid identified. The aorta is nonaneurysmal. Vertebral body heights are preserved. There is no acute fracture. The distal spinal cord and conus are intact. Alignment is normal. The cauda equina nerve roots are normal in morphology. There is no clumping, thickening or displacement. The thecal sac is patent without stenosis. At L1-L2 there is no abnormality. At L2-L3 there is minimal disc bulge and facet hypertrophy without stenosis. The foramina are widely patent. At L3-L4 laminectomy changes are noted with a widely patent spinal canal and lateral recesses. There is prominent facet hypertrophy and spurring resulting in mild right foraminal narrowing. Left foramen is widely patent. At L4-L5 there is loss of disc height with anterior osteophytosis. Clinically changes are noted with a widely patent canal and lateral recesses. There is prominent facet hypertrophy and spurring with moderate to severe osseous foraminal stenosis of the right foramen. Left foramen is mildly narrowed. Correlate for a right L4 radiculopathy. At L5-S1 there is facet hypertrophy and spurring without canal or lateral recess narrowing. Facet spurring and disc osteophyte complex results in severe osseous left foraminal narrowing. Correlate for a left L5 radiculopathy. The right foramen is mild linear. Visualized upper sacrum is intact. IMPRESSION: The canal and lateral recesses are widely patent at all levels. There is significant facet spurring and hypertrophy resulting in right-sided osseous foraminal narrowing at L4-5 and left-sided foraminal stenosis at L5-S1. Correlate for a right L4 and L5 radiculopathy. There is also mild foraminal narrowing from osseous spurring at L3-L4 on the right. [id number] Procedure Note Hm Interface, Radiology Results Incoming - 05/15/2018 2:10 PM BUILDING SERVICES SUPERVISOR EXAMINATION: CT POST MYELOGRAM LUMBAR CLINICAL HISTORY: M48.061 Spinal stenosis lumbar region without neurogenic claudication, lumbar stenosis COMPARISON: None TECHNIQUE: Axial postintrathecal contrast enhanced images of the spine were obtained with coronal and sagittal MIP reconstructed imaging. CT imaging was performed with iterative reconstruction technique and/or automated exposure control to reduce radiation dose. FINDINGS: Soft tissue shows some scattered lymph nodes in the retroperitoneum which are subcentimeter in size and nonspecific. No grossly enlarged adenopathy, mass or fluid identified. The aorta is nonaneurysmal. Vertebral body heights are preserved. There is no acute fracture. The distal spinal cord and conus are intact. Alignment is normal. The cauda equina nerve roots are normal in morphology. There is no clumping, thickening or displacement. The thecal sac is patent without stenosis. At L1-L2 there is no abnormality. At L2-L3 there is minimal disc bulge and facet hypertrophy without stenosis. The foramina are widely patent. At L3-L4 laminectomy changes are noted with a widely patent spinal canal and lateral recesses. There is prominent facet hypertrophy and spurring resulting in mild right foraminal narrowing. Left foramen is widely patent. At L4-L5 there is loss of disc height with anterior osteophytosis. Clinically changes are noted with a widely patent canal and lateral recesses. There is prominent facet hypertrophy and spurring with moderate to severe osseous foraminal stenosis of the right foramen. Left foramen is mildly narrowed. Correlate for a right L4 radiculopathy. At L5-S1 there is facet hypertrophy and spurring without canal or lateral recess narrowing. Facet spurring and disc osteophyte complex results in severe osseous left foraminal narrowing. Correlate for a left L5 radiculopathy. The right foramen is mild linear. Visualized upper sacrum is intact. IMPRESSION: The canal and lateral recesses are widely patent at all levels. There is significant facet spurring and hypertrophy resulting in right-sided osseous foraminal narrowing at L4-5 and left-sided foraminal stenosis at L5-S1. Correlate for a right L4 and L5 radiculopathy. There is also mild foraminal narrowing from osseous spurring at L3-L4 on the right. [id number] Performing Organization Address City/State/Zipcode Phone Number [facility] [address] [place] [address] IR Myelogram Lumb Incl Inj W S&I (05/15/2018 10:05 AM BUILDING SERVICES SUPERVISOR) Specimen Narrative Performed At EXAMINATION:IR MYELOGRAM LUMB INCL INJ W S&I [facility] CLINICAL HISTORY:M48.061 Spinal stenosislumbar region without neurogenic claudication, lumbar stenosis COMPARISON:CT lumbar myelogram performed after fluoroscopic exam dated May 15, 2018 TECHNIQUE: After informed consent was obtained, the patient was placed prone on the fluoroscopy table. The back was prepped and draped in sterile manner.1% buffered lidocaine was used for local anesthesia. Under fluoroscopic guidance, a 27-gauge needle was advanced percutaneously into the spinal subarachnoid space via interlaminar approach at L2-L3 until free-flowing CSF returned from the hub. Subsequently, 10-mL of iohexol 240was instilled into the thecal sac. The needle was removed. Multiple myelographic projections of the lumbarspine were obtained. The patient tolerated procedure well with no immediate complication. Total fluoroscopy time was 0.15 minutes.Total radiation dose is 105 mGy=Ka,r FINDINGS: There is severe osseous from narrowing at L5-S1 on CT. Note is made of redundancy of the left L5 nerve root prior to exiting the foramen with some truncation of the nerve root sleeve on the left L5 nerve. On the right there is mild nervous system truncation of the right L4 nerve root sleeve. Findings correlate well with prior CT showing moderate severe foraminal narrowing at this level. There is no significant thecal sac effacement to suggest canal narrowing. IMPRESSION: Abnormal myelogram showing some redundancy of the left L5 nerve correlating with the prominent left osseous foraminal narrowing at L5-S1 on CT. There is also mild truncation of the right L4 nerve root sleeve correlating to the osseous from narrowing of the right L4-5 foramen. [id number] Procedure Note Interface, Radiology Results Incoming - 05/15/2018 6:57 PM BUILDING SERVICES SUPERVISOR EXAMINATION: IR MYELOGRAM LUMB INCL INJ W S&I CLINICAL HISTORY: M48.061 Spinal stenosis lumbar region without neurogenic claudication, lumbar stenosis COMPARISON: CT lumbar myelogram performed after fluoroscopic exam dated May 15, 2018 TECHNIQUE: After informed consent was obtained, the patient was placed prone on the fluoroscopy table. The back was prepped and draped in sterile manner. 1% buffered lidocaine was used for local anesthesia. Under fluoroscopic guidance, a 27 -gauge needle was advanced percutaneously into the spinal subarachnoid space via interlaminar approach at L2-L3 until free-flowing CSF returned from the hub. Subsequently, 10 -mL of iohexol 240 was instilled into the thecal sac. The needle was removed. Multiple myelographic projections of the lumbar spine were obtained. The patient tolerated procedure well with no immediate complication. Total fluoroscopy time was 0.15 minutes. Total radiation dose is 105 mGy =Ka,r FINDINGS: There is severe osseous from narrowing at L5-S1 on CT. Note is made of redundancy of the left L5 nerve root prior to exiting the foramen with some truncation of the nerve root sleeve on the left L5 nerve. On the right there is mild nervous system truncation of the right L4 nerve root sleeve. Findings correlate well with prior CT showing moderate severe foraminal narrowing at this level. There is no significant thecal sac effacement to suggest canal narrowing. IMPRESSION: Abnormal myelogram showing some redundancy of the left L5 nerve correlating with the prominent left osseous foraminal narrowing at L5-S1 on CT. There is also mild truncation of the right L4 nerve root sleeve correlating to the osseous from narrowing of the right L4-5 foramen. [id number] Performing Organization Address City/State/Zipcode Phone Number [facility] [address] [place] [address] XR Pelvis 3+ Vw (05/11/2018 8:52 AM BUILDING SERVICES SUPERVISOR) Specimen Narrative Performed At AP pelvis and lateral x-ray of both hips reveals mild to moderate HM [facility] arthritic changes. Performing Organization Address [facility] Phone Number [facility] [address] [place] [address] OR FL < 1 Hour (11/10/2017 8:40 AM CDT) Specimen Narrative Performed At EXAMINATION:OR FL 1 HOUR HM [facility] CLINICAL HISTORY: IMPRESSION: Fluoroscopy was provided. No radiologist present.Please see procedure report for discussion of procedure, findings and fluoroscopic time. [id number] Procedure Note Hm Interface, Radiology Results Incoming - 11/10/2017 10:26 AM CDT EXAMINATION: OR FL 1 HOUR CLINICAL HISTORY: IMPRESSION: Fluoroscopy was provided. No radiologist present. Please see procedure report for discussion of procedure, findings and fluoroscopic time. [id number] Performing Organization Address [facility] Phone Number [facility] [address] [place] [address] after 11/06/2017 [facility] [address] [place] [address] (Home) [place] [address] Advance Directives Patient has advance care planning documents on file. For more information, please contact:Geiger [address] [place] [address]
--- OUTSIDE RECORDS SUMMARY | 2018-11-07 06:12 | XMS REPORT | Summary of Care ---
:1960 Author Organization [facility] [place] Address [address] [place] [address]- Encounter HQ Sharifa_shirlene(FIN) [id number] Date(s): 04/19/18 - 04/19/18 [facility] [address] [place] [address]- [phone] Attending Physician: Stiven Maria MD Referring Physician: Ken Lloyd MD Vital Signs No data available for this section Problem List Condition Effective Dates Status Health Status Informant COPD (chronic obstructive pulmonary Active disease)(Confirmed) Hyperlipidemia(Confirmed) Active Cerebral aneurysm(Confirmed) Active Myalgia(Confirmed) Active Obesity(Confirmed) Active Palpitations(Confirmed) Active Tachycardia(Confirmed) Active Dorsalgia(Confirmed) Active Allergies, Adverse Reactions, Alerts No data available for this section Medications No data available for this section Results No data available for this section Immunizations No data available for this section Procedures No data available for this section Social History Social History Type Response Smoking Status Never smoker; Type: Cigarettes; Previous treatment: None; Ready to change: No; Concerns about tobacco use in household: No; Exposure to Tobacco Smoke None; Cigarette Smoking Last 365 Days No; Reg Smoking Cessation Counseling No entered on: 08/01/18 Assessment and Plan No data available for this section
--- OUTSIDE RECORDS SUMMARY | 2018-11-07 06:12 | XMS REPORT | Continuity of Care Document ---
:1960 Author Organization Interface Problems Problem Status Onset Classification Date Comments Source Date Reported G93.89 - OTHER Active 08/05/19 [facility] SPECIFIED 19 [place] DISORDERS OF B Abscess of vulva Inactive Finding 06/01/[address] [facility] Cellulitis Inactive Finding 06/01/[address] [facility] [place] COPD (<span Active Problem 11/06/2018 [facility] ID="[id number]" Neuro, >Confirmed</span> [facility] ) [place] Hyperlipidemia Active Problem 11/06/2018 [facility] Neuro, [facility] [place] Cerebral aneurysm Active Problem 11/06/2018 [facility] Neuro, [facility] [place] Myalgia Active Problem 11/06/2018 [facility] Neuro, [facility] [place] Obesity Active Problem 11/06/2018 [facility] Neuro, [facility] [place] Palpitations Active Problem 11/06/2018 [facility] Neuro, [facility] [place] Tachycardia Active Problem 11/06/2018 [facility] Neuro, [facility] [place] Dorsalgia Active Problem 11/06/2018 [facility] Neuro, [facility] [place] Medications Medication Details Route Status Patient Ordering Order Source Instructions Provider Date Budesonide/Form TWICE Active [facility] Fumarate DAILY [facility] [place] Mirabegron DAILY [facility] [place] Omeprazole [facility]ILY [facility] [place] Phentermine/Top DAILY Active [facility] iramate [facility] [place] Polyethylene DAILY Active [facility] Glycol 3350 [facility] [place] Albuterol FOUR TIMES Active [facility] DA[facility] [place] Allergies, Adverse Reactions, Alerts Substance Category Reaction Severity Reaction Status Date Comments Source type Reported Tetracycline Anaphylaxis Moderate Allergy to Active [facility] Immunizations Immunization Date Given Site Status Last Updated Comments Source Results Order Name Results Value Reference Date Interpretation Comments Source Range Brain w/wo Brain w/wo EXAM: Brain w/wo contrast MRI 08/14 - [facility] contrast contrast MRI /2018 - [place] MRI DATE: 08/14/2018 15:10 CDT Read by: Brianda Padilla MD Dictated Date/time: 08/15/18 09:18 Electronically Signed by: Brianda Padilla MD 08/15/18 09:40 FINAL REPORT INDICATION: G93.89 Other specified disorders of brain - G93.89 Other specified disorders of brain COMPARISON: None TECHNIQUE: Multiplanar multisequence images of the brain were obtained before and after the intravenous administration of contrast material. DISCUSSION: Signal intensity of the brain parenchyma is unremarkable. No acute hemorrhage, hydrocephalus or midline shift. No mass or abnormal enhancement. There is a venous varix in the left sylvian fissure measuring 7 x 6 mm. No acute hemorrhage or restricted diffusion. Pineal region, pituitary gland, cranio cervical junction, orbits and internal auditory canals are unremarkable. 12 mm cystic like lesion in the subcutaneous tissues of the right cheek. IMPRESSION: No acute intracranial abnormality. 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 Recommend CTA for further catheterization Brain w/wo Brain w/wo EXAM: Brain with and without contrast MRA 08/14 - [facility] contrast contrast MRA /2018 - [place] MRA DATE: 08/14/2018 15:09 CDT Read by: Brianda Padilla MD Dictated Date/time: 08/15/18 09:31 Electronically Signed by: Brianda Padilla MD 08/15/18 09:38 FINAL REPORT INDICATION: G93.89 Other specified disorders of brain - G93.89 Other specified disorders of brain COMPARISON: None TECHNIQUE: 3-D [id number] MR angiography of the vessels of the brain was performed with MIP reformatted images. Time Resolved MR angiography of the vessels of the ring was performed following intravenous administration of 20 mL Dotarem DISCUSSION: The intracranial vascular structures are patent with no flow limitation or contour irregularity. No AV malformation. 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 Redemonstration of the small venous varix in the left sylvian fissure. IMPRESSION: Small venous varix in the left sylvian fissure of unclear significance. Recommend CTA for further characterization. Neck w/wo Neck w/wo EXAM: Neck w/wo contrast MRA 08/14 - [facility] contrast contrast MRA /2018 - [place] MRA DATE: 08/14/2018 15:08 CDT Read by: Brianda Padilla MD Dictated Date/time: 08/15/18 09:33 Electronically Signed by: Brianda Padilla MD 08/15/18 09:36 FINAL REPORT INDICATION: G93.89 Other specified disorders of brain - G93.89 Other specified disorders of brain COMPARISON: None TECHNIQUE: 2-D and 3-D MR angiography of the vessels of the neck was performed without contrast administration with MIP reformatted images. Time resolved MR angiography of the vessels of the neck was performed following intravenous administration of a 20 mL Dotarem. DISCUSSION: The vascular structures of the neck are patent with no flow limitation or luminal narrowing. There is tortuosity of the right cervical internal carotid artery. No AV malformation or aneurysms. IMPRESSION: Unremarkable MRA of the neck Laboratory Urine WBC null 05/[address] [facility] [address] Studies /2016 [facility] [place] Laboratory Urine null 05/31 [facility]. Studies Squamous /2016 [facility] Epithelial [place] Cells Laboratory Urine RBC Urine RBC 05/[address] [facility] [address] Studies /2016 [facility] [place] Laboratory Urine Urine 05/31 [facility]. Studies Culture Culture /2016 [facility] Reflexed Reflexed [place] Laboratory Urine Urine 05/31 [facility]. Studies Bacteria Bacteria /2016 [facility] [place] Laboratory Urine Urine 05/31 [facility]. Studies Amorphous Amorphous /2016 [facility] Sediment Sediment [place] Laboratory Urine pH 7.0 05/[address] [facility] [address] Studies /2016 [facility] [place] Laboratory Urine 1.0 mg/dL 05/[address] [facility] [address] Studies Urobilinogen /2016 [facility] [place] Laboratory Urine Total Urine 05/31 [facility]. Studies Protein Total /2016 [facility] Protein [place] Laboratory Urine 1.015 05/31 [facility]. Studies Specific /2016 [facility] [place] Laboratory Urine Urine 05/31 [facility]. Studies Nitrite Nitrite /2016 [facility] [place] Laboratory Urine Urine 05/31 [facility]. Studies Leukocyte Leukocyte /2016 [facility] Esterase Esterase [place] Laboratory Urine Urine 05/[address] [facility] [address] Studies Ketones Ketones /2016 [facility] [place] Laboratory Urine Urine 05/[address] [facility] [address] Studies Glucose Glucose /2016 [facility] [place] Laboratory Urine Color Urine 05/31 [facility] Studies Color /2016 [facility] [place] Laboratory Urine Blood Urine 05/31 [facility] Studies Blood /2016 [facility] [place] Laboratory Urine Urine 05/31 [facility] Studies Bilirubin Bilirubin [facility] [place] [facility] Urine Urine 05/31 [facility] Studies Appearance Appearance [facility] [place] [facility] White Blood 7.8 K/uL 4.3 - 10.9 05/31 [facility]. Studies Count /2016 [facility] [place] Laboratory Red Cell 14.1 % 12.1 - 05/31 [facility] Studies Distribution 15.2 [facility] Width [place] Laboratory Red Blood 4.37 M/uL 3.86 - 05/31 [facility] Studies Count 4.86 [facility] [place] Laboratory Platelet 273 K/uL 152 - 406 05/31 [facility] Studies Count /2016 [facility] [place] Laboratory Neutrophils 54.5 % 41.7 - 05/31 [facility]. Studies % 73.7 /2016 [facility] [place] Laboratory Monocytes % 6.7 % 3.3 - 12.3 05/31 [facility]. Studies /2016 [facility] [place] Laboratory Mean 9.0 fL 7.6 - 11.3 05/31 [facility] Studies Platelet /2016 [facility] Volume [place] Laboratory Mean 92.7 fL 80 - 100 05/31 [facility] Studies Corpuscular /2016 [facility] Volume [place] Laboratory Mean 33.5 g/dL 32.0 - 05/31 [facility] Studies Corpuscular 36.0 [facility] Hemoglobin [place] [facility] Laboratory Mean 31.1 pg 27.0 - 05/31 [facility] Studies Corpuscular 35.0 [facility] Hemoglobin [place] Laboratory Lymphocytes 36.8 % 15.3 - 05/31 [facility]. Studies % 44.8 /2016 [facility] [place] Laboratory Hemoglobin 13.6 g/dL 12.0 - 05/31 [facility] Studies 15.0 /2016 [facility] [place] Laboratory Hematocrit 40.5 % 36.0 - 05/31 [facility] Studies 45.0 /2016 [facility] [place] Laboratory Eosinophils 1.2 % 0 - 4.4 05/31 [facility]. Studies % /2016 [facility] [place] Laboratory Basophils % 0.8 % 0 - 1.3 05/[address] [facility] [address] Studies /2017 [facility] [place] Laboratory Absolute 4.2 K/uL 1.8 - 8.0 05/[address] [facility] [address] Studies Neutrophil [facility] [place] [facility] Absolute 0.5 K/uL 0.1 - 1.3 05/[address] [facility] [address] Studies Monocytes /2016 [facility] (CBC) [place] Laboratory Absolute 2.9 K/uL 0.7 - 4.9 05/[address] [facility] [address] Studies Lymphocytes [facility] (CBC) [place] Laboratory Absolute 0.1 K/uL 0 - 0.5 05/[address] [facility] [address] Studies Eosinophils /2016 [facility] (CBC) [place] Laboratory Absolute 0.1 K/uL 0 - 0.5 05/[address] [facility] [address] Studies Basophils [facility] (CBC) [place] Vital Signs Vital Sign Value Date Comments Source Temperature Oral (F) 97.4 F 06/01/2017 [facility] [place] Heart Rate 57 06/01/2017 [facility] [place] Respitory Rate 18 06/01/2017 [facility] [place] Systolic (mm Hg) 123 06/01/2017 [facility] [place] Diastolic (mm Hg) 569 06/01/[address] [facility] [place] Height 62 05/31/2017 [facility] [place] Weight 177.00 05/31/2017 [facility] [place] Encounters Location Location Encounter Encounter Reason Attending ADM DC Status Source Details Type Number For Provider Date Date Visit [facility] Departed [id number] 06/01 06/[address] [facility] [place] [facility] [place] [facility] [id number] [facility] 04/19 04/19 [facility] Pre-Reg [place] /2017 [facility] [place] [facility] [id number] ALEJANDRO 08/01 Active [facility] Outpatient [id number] BRUNO SHANE 08/01 Active [facility] MNA Phone [id number] 08/11 08/13 [facility] Neurosurger Message /2018 [facility] Out[facility] Diag [id number] Alejandro 08/14 08/15 [facility] [place] /2018 [facility] MNA Phone [id number] 08/15 08/17 [facility] Neurosurger Message /2018 [facility] Phone [id number] 08/16 08/18 [facility] Neurosurger Message /2018 [facility] Procedures Procedure Code Date Perfomer Comments Source TVT-O([facility] [id number] 06/01/2017 [facility] Isbell [facility] - [facility]) [place]
[2018-11-07] MEDS ORDERED: Ringers Lactate 1,000 ML IV ONE ×2 (06:33→08:41)
[2018-11-07] MEDS ORDERED: CEFAZOLIN/SWI 1gm 1 GM/10 ML SYR ONE (06:33)
[2018-11-07] MEDS ORDERED: NS 0.9% VIAL 20 ML ONE (07:17)
[2018-11-07] MEDS ORDERED: LIDOCAINE 1% W/EPI 1:100,000 MDV 50 ML VIAL ONE (07:18)
[2018-11-07] MEDS ORDERED: FENTANYL CITR 100 MCG/2 ML ONE (07:29)
[2018-11-07] MEDS ORDERED: PROPOFOL 200 MG/20 ML VIAL IV ONE (07:29)
[2018-11-07] MEDS ORDERED: CEFAZOLIN/SWI 1gm 1 GM/10 ML SYR IVP SCH (07:30)
[2018-11-07] MEDS ORDERED: MIDAZOLAM HCL 2 MG/2 ML INJ ONE (07:30)
[2018-11-07] MEDS ORDERED: LIDOCAINE 2% MPF 5 ML VIAL ONE (07:30)
[2018-11-07] MEDS: BOTU TOX TYPE A 100 UNIT/VIAL ID ONE ×2 (07:37→08:04)
[2018-11-07] MEDS ORDERED: NA CHLORIDE 0.9% 1,000 ML ONE (07:42)
[2018-11-07] MEDS ORDERED: KETOROLAC 30 MG/ML INJ ONE (08:30)
[2018-11-07] MEDS ORDERED: ONDANSETRON 4 MG/2 ML VIAL ONE (08:30)
[2018-11-07] MEDS ORDERED: DEXAMETHASONE 10 MG/ML VIAL ONE (08:31)
[2018-11-07] MEDS ORDERED: MEPERIDINE HCL 25 MG/0.5 ML ONE (09:17)
[2018-11-07 09:31] VITALS: BP 115/67; TEMP 97.6; O2SAT 100
--- NOTE | 2018-11-07 13:02 | OP ---
Date of Procedure: 11/07/2018 Surgeon: Kathia Parikh MD Preoperative Diagnosis: Refractory overactive bladder. Postoperative Diagnosis: Refractory overactive bladder. Procedures Performed: Cystoscopy with Botox injection of 100 units. Anesthesia: General with LMA. Complications: None. Drains: None. Findings: The bladder with reduced capacity. No tumors, stones, or diverticula seen in the bladder or the urethra. Botox injection 100 units was given, 22 injections above the level of the trigone and then 2 injectio ns in the trigone. After informed consent was verified, 1 g of Ancef was given. The patient was taken back to the OR, p laced in supine fashion on the operating table, general anesthesia given. She was placed in a dorsal lithotomy position using Eyad stirrups. Prep of the vulva, vagina, and periurethral area was done. A 17-Citizen [place] sheath was used with 30-degree lens and normal saline. Cystoscopy was performed. No e vidence of any tumors, diverticula, or stones. The bladder appeared to be unremarkable, relatively d ecreased capacity. The scope was removed. Sheath was changed to a 21-Citizen [place], this was then excised and leveled for fitting the end the needle catheter into through the sheath. Once the Laborie needle was introduced into the sheath, once the bladder was entered, the bevel was set to 4 mm depth. Then , 100 units of Botox was diluted in 10 cc of normal saline, each cc containing 10 units of Botox, so plan was to inject 5 units of Botox in 20 sites. So, the injections were started the first row above the trigone 6, then 8, then 6 in 3 rows, the second row going laterally as there was not much room f or doing 7 injections due to the decreased capacity of the bladder. Then the saline flushes were injected in the trigonal area x2. Once this was done, the bladder was d rained. There was a small amount of bleeding, which was flushed and drained. The patient was recove red from anesthesia. Instrument, needle, and sponge counts were correct at the end of the case. The patient tolerated the procedure well. She will follow up with me in 5 days for a voiding trial and 10 days for postop visit and a repeat voiding trial. She has been given Macrobid 100 mg daily postop for 7 days. Prescriptions will be called into her pharmacy. SHONNA/RADHIKA Voice ID: [id number] Report ID: [id number]
== END 2018-11-07 09:59 | disposition home or self-care (01) ==
LOC: OR 06:09
PROVIDERS: ATTEND Obstetrics & Gynecology
PROC: 3E0K8GC Introduction of Other Therapeutic Substance into Genitourinary Tract, Via Natural or Artificial Opening Endoscopic (ICD-10-PCS; principal; 2018-11-07 07:30)
DX: N32.81 Overactive bladder (principal); M54.5 Low back pain; M48.00 Spinal stenosis, site unspecified; J45.909 Unspecified asthma, uncomplicated; F17.210 Nicotine dependence, cigarettes, uncomplicated; Z79.899 Other long term (current) drug therapy
CPT/HCPCS: 81003; J0585; J0690; J1100; J2175; J2250; J2405; J2704; J3010; J7030

== ENCOUNTER 2019-05-14 05:23 | Emergency (ER) | payer BC ==
[2019-05-14 06:03] LABS: Absolute Lymphocytes (CBC) 1.2 K/uL (0.7-4.9); Basophils % 0.4 % (0-1.3); Hematocrit 40.9 % (36.0-45.0); Lymphocytes % 25.3 % (15.3-44.8); MPV 9.2 fL (7.6-11.3); RBC Red Blood Cell Count 4.55 M/uL (3.86-4.86)
[2019-05-14 06:33] LABS: ALT/SGPT 37 U/L (12-78); AST/SGOT 24 U/L (15-37); Albumin 3.4 g/dL (3.4-5.0); Alkaline Phosphatase 114 U/L (45-117); BUN Blood Urea Nitrogen 7 mg/dL (7-18); Bicarbonate 26 mmol/L (21-32); Bilirubin Direct < 0.1 mg/dL (0-0.2); Bilirubin Total 0.4 mg/dL (0.2-1.0); Glucose Level 100 mg/dL (74-106); Lipase 84 U/L (73-393); Potassium 3.6 mmol/L (3.5-5.1); Protein, Total 7.1 g/dL (6.4-8.2); Sodium Level 139 mmol/L (136-145)
[2019-05-14] MEDS ORDERED: NA CHLORIDE 0.9% 1,000 ML ONE (06:52)
[2019-05-14] MEDS ORDERED: MORPHINE 4 MG/ML SYR ONE (06:52)
[2019-05-14] MEDS ORDERED: ONDANSETRON 4 MG/2 ML VIAL ONE (06:52)
--- NOTE | 2019-05-14 07:28 | RAD REPORT ---
EXAM DESCRIPTION: CT - Abdomen Pelvis W Contrast - 05/14/2019 7:10 am CLINICAL HISTORY: Abdominal pain COMPARISON: none. TECHNIQUE: Computed axial tomography of the abdomen pelvis was obtained. 100 cc Isovue-300 was admin istered intravenously. Oral contrast was not requested which limits evaluation of bowel. All CT scans are performed using dose optimization technique as appropriate and may include automated exposure control or mA/KV adjustment according to patient size. FINDINGS: The liver, spleen, pancreas, adrenal and kidneys appear unremarkable. There is no evidence of diverticulitis. The wall of the ascending colon, transverse colon and descend ing colon is moderately thickened. A small lipoma is present within the duodenum. A hysterectomy is been performed A small umbilical hernia IMPRESSION: Moderate colitis
[2019-05-14] MEDS ORDERED: HYDROCODONE/APAP 5/325 MG TAB ONE (07:59)
[2019-05-14] MEDS ORDERED: CIPROFLOXACIN HCL 500 MG TAB ONE (07:59)
[2019-05-14] MEDS ORDERED: METRONIDAZOLE 500mg IVPB 500 MG/100 ML BAG IV ONE (08:00)
--- NOTE | 2019-05-14 08:22 | EDPHYS ---
Physician Documentation [facility] Name: Salome Walsh Age: 58 yrs Sex: Female : 1960 Arrival Date: 05/14/2019 Time: 05:25 Bed 5 Private MD: ED Physician Adelso Mackenzie HPI: 05/14 06:07 This 58 yrs old Female presents to ER via Ambulatory with complaints of pm1 Abdominal Cramping, Fever, Diarrhea. 06:07 The patient presents with abdominal pain. pm1 06:07 Onset: The symptoms/episode began/occurred 2 day(s) ago. Associated signs and symptoms: pm1 Pertinent positives: diarrhea, fever, headache, Pertinent negatives: nausea and vomiting, chest pain, constipation, dysuria, shortness of breath. The symptoms are described as crampy. Modifying factors: The symptoms are alleviated by nothing, the symptoms are aggravated by nothing. Severity of pain: in the emergency department the pain is actually worse. The patient has not experienced similar symptoms in the past. The patient has not recently seen a physician. Historical: - Allergies: 05:38 TETRACYCLINES; jb4 - Home Meds: 05:38 Proventil Inhl [Active]; Symbicort inhalation [Active]; Bentyl Oral [Active]; jb4 - PMHx: 05:38 Asthma; palpitations; jb4 - PSHx: 05:38 back; Hysterectomy; jb4 - Immunization history:: Adult Immunizations up to date. - Social history:: Smoking status: Patient uses tobacco products, 3-4 cigarettes/day, Patient uses alcohol, but reports only rare drinking. Patient/guardian denies using street drugs. - Ebola Screening: : No symptoms or risks identified at this time. ROS: 06:07 Eyes: Negative for injury, pain, redness, and discharge, ENT: Negative for injury, pm1 pain, and discharge, Neck: Negative for injury, pain, and swelling, Cardiovascular: Negative for chest pain, palpitations, and edema. 06:07 Respiratory: Negative for shortness of breath, cough, wheezing, and pleuritic chest pain. 06:07 Back: Negative for injury and pain, : Negative for injury, bleeding, discharge, and swelling, MS/Extremity: Negative for injury and deformity, Skin: Negative for injury, rash, and discoloration, Neuro: Negative for headache, weakness, numbness, tingling, and seizure. 06:07 Constitutional: Positive for body aches, chills, Negative for poor PO intake. 06:07 Abdomen/GI: Positive for abdominal pain, diarrhea, Negative for nausea and vomiting, black/tarry stool. Exam: 06:07 Constitutional: This is a well developed, well nourished patient who is awake, alert, pm1 and in no acute distress. Head/Face: Normocephalic, atraumatic. Eyes: Pupils equal round and reactive to light, extra-ocular motions intact. Lids and lashes normal. Conjunctiva and sclera are non-icteric and not injected. Cornea within normal limits. Periorbital areas with no swelling, redness, or edema. ENT: Nares patent. No nasal discharge, no septal abnormalities noted. Tympanic membranes are normal and external auditory canals are clear. Oropharynx with no redness, swelling, or masses, exudates, or evidence of obstruction, uvula midline. Mucous membranes moist. Neck: Trachea midline, no thyromegaly or masses palpated, and no cervical lymphadenopathy. Supple, full range of motion without nuchal rigidity, or vertebral point tenderness. No Meningismus. Chest/axilla: Normal chest wall appearance and motion. Nontender with no deformity. No lesions are appreciated. Cardiovascular: Regular rate and rhythm with a normal S1 and S2. No gallops, murmurs, or rubs. Normal PMI, no JVD. No pulse deficits. Respiratory: Lungs have equal breath sounds bilaterally, clear to auscultation and percussion. No rales, rhonchi or wheezes noted. No increased work of breathing, no retractions or nasal flaring. 06:07 Back: No spinal tenderness. No costovertebral tenderness. Full range of motion. Skin: Warm, dry with normal turgor. Normal color with no rashes, no lesions, and no evidence of cellulitis. MS/ Extremity: Pulses equal, no cyanosis. Neurovascular intact. Full, normal range of motion. 06:07 Abdomen/GI: Inspection: abdomen appears normal, Bowel sounds: normal, Palpation: soft, mild abdominal tenderness, in the abdomen diffusely, mass, is not appreciated, rebound tenderness, is not appreciated. 06:07 Neuro: Orientation: is normal, Motor: is normal, moves all fours. Vital Signs: 05:38 BP 134 / 85; Pulse 81; Resp 18; Temp 98.2(O); Pulse Ox 95% on R/A; Weight 93.89 kg (R); jb4 Height 5 ft. 1 in. (154.94 cm) (R); Pain 10/10; 07:45 BP 132 / 82; Pulse 78; Resp 15; Pulse Ox 97% on R/A; hb 05:38 Body Mass Index 39.11 (93.89 kg, 154.94 cm) jb4 MDM: 06:31 Patient medically screened. pm1 07:55 Data reviewed: vital signs. Data interpreted: Pulse oximetry: on room air is 95 %. pm1 Interpretation: normal. Counseling: I had a detailed discussion with the patient and/or guardian regarding: the historical points, exam findings, and any diagnostic results supporting the discharge/admit diagnosis, lab results, radiology results, the need for outpatient follow up, to return to the emergency department if symptoms worsen or persist or if there are any questions or concerns that arise at home. 05/14 05:34 Order name: Basic Metabolic Panel; Complete Time: 06:57 tw4 05/14 05:34 Order name: CBC with Diff; Complete Time: 06:21 tw4 05/14 05:34 Order name: Creatinine for Radiology; Complete Time: 06:57 tw4 05/14 05:34 Order name: Hepatic Function; Complete Time: 06:57 tw4 05/14 05:34 Order name: Lipase; Complete Time: 06:57 tw4 05/14 06:06 Order name: Stool Culture pm1 05/14 06:06 Order name: Ova And Parasites pm1 05/14 06:06 Order name: Fecal Leukocyte Stain pm1 05/14 06:07 Order name: Stool Culture EDMS 05/14 06:07 Order name: Ova and Parasites EDMS 05/14 06:07 Order name: Fecal Leukocyte Stain EDMS 05/14 06:31 Order name: Flu; Complete Time: 07:55 pm1 05/14 06:37 Order name: C.difficile GDH Ag EDMS 05/14 05:34 Order name: IV Saline Lock; Complete Time: 05:57 tw4 05/14 05:34 Order name: Labs collected and sent; Complete Time: 05:57 tw4 12/09 06:31 Order name: CT Abd/Pelvis - IV Contrast Only; Complete Time: 07:37 pm1 Administered Medications: 06:52 Drug: Zofran 4 mg Route: IVP; Site: right antecubital; jb4 07:40 Follow up: Response: No adverse reaction hb 06:54 Drug: morphine 4 mg {Note: Rass score 0.} Route: IVP; Site: right antecubital; jb4 07:40 Follow up: Response: No adverse reaction hb 07:31 Drug: NS 0.9% 1000 ml Route: IV; Rate: 1000 ml; Site: right antecubital; hb 08:05 Drug: Flagyl 500 mg Volume: 100 ml; Route: IVPB; Rate: 200 ml/hr; Infused Over: 30 hb mins; Site: right antecubital; 08:05 Drug: Cipro 500 mg Route: PO; hb 08:05 Drug: [place] 5 mg-325 mg 1 tabs Route: PO; hb Disposition: 09:17 Co-signature as Attending Physician, Adelso Mackenzie MD I agree with the assessment and tw4 plan of care. Disposition: 05/14/19 08:21 Discharged to Home. Impression: Colitis. - Condition is Stable. - Discharge Instructions: Colitis. - Prescriptions for Bentyl 20 mg Oral Tablet - take 1 tablet by ORAL route every 6 hours As needed; 20 tablet. Flagyl 500 mg Oral Tablet - take 1 tablet by ORAL route every 8 hours for 10 days; 30 tablet. Tylenol- Codeine #3 300-30 mg Oral Tablet - take 2 tablets by ORAL route every 6 hours As needed; 20 tablet. Cipro 500 mg Oral Tablet - take 1 tablet by ORAL route every 12 hours for 10 days; 20 tablet. - Medication Reconciliation Form, Thank You Letter, Antibiotic Education, Prescription Opioid Use form. - Follow up: Emergency Department; When: As needed; Reason: Worsening of condition. Follow up: Private Physician; When: 2 - 3 days; Reason: Recheck today's complaints, Continuance of care, Re-evaluation by your physician. - Problem is new. - Symptoms have improved. Signatures: Dispatcher [employer] EDMS Steven Smith, [employer] WINDOWS SERVER ARCHITECT pm1 Francisca Gonzalez, RN RN Ted Guerrero RN RN jb4 Adelso Mackenzie MD MD tw4 Corrections: (The following items were deleted from the chart) 08:49 08:21 05/14/2019 08:21 Discharged to Home. Impression: Colitis. Condition is Stable. hb Forms are Medication Reconciliation Form, Thank You Letter, Antibiotic Education, Prescription Opioid Use. Follow up: Emergency Department; When: As needed; Reason: Worsening of condition. Follow up: Private Physician; When: 2 - 3 days; Reason: Recheck today's complaints, Continuance of care, Re-evaluation by your physician. Problem is new. Symptoms have improved. pm1
--- NOTE | 2019-05-14 08:22 | ER ---
Nurse's Notes [facility] Name: Slaome Walsh Age: 58 yrs Sex: Female : 1960 Arrival Date: 05/14/2019 Time: 05:25 Bed 5 Private MD: Diagnosis: Colitis Presentation: 05/14 05:35 Presenting complaint: Patient states: Since Tuesday I have been having really bad jb4 cramping and diarrhea and a headache along with fever. Now I am having bloody diarrhea. Transition of care: patient was not received from another setting of care. Onset of symptoms was May 12, 2019. Risk Assessment: Do you want to hurt yourself or someone else? Patient reports no desire to harm self or others. Initial Sepsis Screen: Does the patient meet any 2 criteria? No. Patient's initial sepsis screen is negative. Does the patient have a suspected source of infection? Yes: Acute abdominal pain. Care prior to arrival: None. 05:35 Method Of Arrival: Ambulatory jb4 05:35 Acuity: FRED 3 jb4 Historical: - Allergies: 05:38 TETRACYCLINES; jb4 - Home Meds: 05:38 Proventil Inhl [Active]; Symbicort inhalation [Active]; Bentyl Oral [Active]; jb4 - PMHx: 05:38 Asthma; palpitations; jb4 - PSHx: 05:38 back; Hysterectomy; jb4 - Immunization history:: Adult Immunizations up to date. - Social history:: Smoking status: Patient uses tobacco products, 3-4 cigarettes/day, Patient uses alcohol, but reports only rare drinking. Patient/guardian denies using street drugs. - Ebola Screening: : No symptoms or risks identified at this time. Screenin:45 Abuse screen: Denies threats or abuse. Nutritional screening: No deficits noted. jb4 Tuberculosis screening: No symptoms or risk factors identified. Fall Risk None identified. Assessment: 05:45 General: Appears in no apparent distress. comfortable, Behavior is calm, cooperative. jb4 Pain: Complains of pain in abdomen Pain does not radiate. Pain currently is 10 out of 10 on a pain scale. Quality of pain is described as crampy. Neuro: Level of Consciousness is awake, alert, obeys commands, Oriented to person, place, time, situation. Cardiovascular: Patient's skin is warm and dry. Respiratory: Airway is patent Respiratory effort is even, unlabored, Respiratory pattern is regular, symmetrical. GI: Abdomen is non-distended, obese, Bowel sounds present X 4 quads. Abd is soft X 4 quads Abdomen is tender to palpation X 4 quads. : No signs and/or symptoms were reported regarding the genitourinary system. EENT: No signs and/or symptoms were reported regarding the EENT system. Derm: Skin is intact, Skin is pink, warm \T\ dry. Musculoskeletal: Circulation, motion, and sensation intact. Range of motion: intact in all extremities. 07:05 Reassessment: report received from Dilip GARCÍA, pt in CT at this time. hb 07:26 Reassessment: Pt returned from CT, flu swab sent and NS bolus started. NAD. hb 08:00 Reassessment: Patient appears in no apparent distress at this time. Patient and/or hb family updated on plan of care and expected duration. Pain level reassessed. Patient is alert, oriented x 3, equal unlabored respirations, skin warm/dry/pink. Vital Signs: 05:38 BP 134 / 85; Pulse 81; Resp 18; Temp 98.2(O); Pulse Ox 95% on R/A; Weight 93.89 kg (R); jb4 Height 5 ft. 1 in. (154.94 cm) (R); Pain 10/10; 07:45 BP 132 / 82; Pulse 78; Resp 15; Pulse Ox 97% on R/A; hb 05:38 Body Mass Index 39.11 (93.89 kg, 154.94 cm) jb4 ED Course: 05:25 Patient arrived in ED. ds1 05:35 Ted Guerrero, RN is Primary Nurse. jb4 05:37 Triage completed. jb4 05:38 Arm band placed on right wrist. jb4 05:45 Patient has correct armband on for positive identification. Bed in low position. Call [facility] light in reach. Side rails up X 1. Pulse ox on. NIBP on. 05:45 Initial lab(s) drawn, by me, sent to lab. Inserted saline lock: 20 gauge in right jb4 antecubital area, using aseptic technique. Blood collected. 05:57 Lipase Sent. jb4 05:58 Hepatic Function Sent. jb4 05:58 Creatinine for Radiology Sent. jb4 05:58 CBC with Diff Sent. jb4 05:58 Basic Metabolic Panel Sent. jb4 06:03 Steven Smith NP is PHCP. pm1 06:03 Adelso Mackenzie MD is Attending Physician. pm1 06:56 Stool Culture Sent. jb4 06:56 Ova And Parasites Sent. jb4 06:56 Fecal Leukocyte Stain Sent. jb4 06:56 Stool Culture Sent. jb4 06:56 Ova and Parasites Sent. jb4 06:56 Fecal Leukocyte Stain Sent. jb4 06:56 C.difficile GDH Ag Sent. jb4 07:11 CT Abd/Pelvis - IV Contrast Only In Process Unspecified. EDMS 07:31 Flu Sent. hb 08:48 No provider procedures requiring assistance completed. IV discontinued, intact, hb bleeding controlled, No redness/swelling at site. Pressure dressing applied. Administered Medications: 06:52 Drug: Zofran 4 mg Route: IVP; Site: right antecubital; jb4 07:40 Follow up: Response: No adverse reaction hb 06:54 Drug: morphine 4 mg {Note: Rass score 0.} Route: IVP; Site: right antecubital; jb4 07:40 Follow up: Response: No adverse reaction hb 07:31 Drug: NS 0.9% 1000 ml Route: IV; Rate: 1000 ml; Site: right antecubital; hb 08:05 Drug: Flagyl 500 mg Volume: 100 ml; Route: IVPB; Rate: 200 ml/hr; Infused Over: 30 hb mins; Site: right antecubital; 08:05 Drug: Cipro 500 mg Route: PO; hb 08:05 Drug: [place] 5 mg-325 mg 1 tabs Route: PO; hb Outcome: 08:21 Discharge ordered by . pm1 08:48 Discharged to home ambulatory. hb 08:48 Condition: stable 08:48 Discharge instructions given to patient, Instructed on discharge instructions, follow up and referral plans. medication usage, Demonstrated understanding of instructions, follow-up care, medications, Prescriptions given X 4. 08:49 Patient left the ED. hb Signatures: Dispatcher [employer] EDID Nabila Harvey dsEscobar Steven Smith, TRIM MOUNTER TRIM MOUNTER pm1 Francisca Gonzalez RN RN Ted Guerrero RN RN jb4
[2019-05-14 09:09] VITALS: TEMP 98.2
[2019-05-14 09:10] VITALS: BP 132/82; O2SAT 97
[2019-05-14 15:36] LABS: C.diff Antigen/Toxin Ag neg : Tox neg (NEG : NEG)
== END 2019-05-14 08:49 | disposition home or self-care (01) ==
LOC: ER 05:23
DX: K52.9 Noninfective gastroenteritis and colitis, unspecified (principal); J45.909 Unspecified asthma, uncomplicated; F17.210 Nicotine dependence, cigarettes, uncomplicated; Z88.3 Allergy status to other anti-infective agents
CPT/HCPCS: 87045; 85025; 80048; 36415; 89055; 87177; 80076; 87046; 87209; 87324; 83690; 87449; 87804 ×2; 74177; 96375; 96374; 99284; Q9967; J7030; J2405

== ENCOUNTER 2022-03-23 07:34 | Day surgery (SDC) | payer OTHER ==
[2022-03-22 09:10] LABS: SARS-CoV-2 Antigen Rapid Res Negative (Negative)
[2022-03-23] MEDS ORDERED: Ringers Lactate 1,000 ML IV ONE (07:39)
[2022-03-23] MEDS ORDERED: CEFAZOLIN SODIUM 1 GM/VIAL ONE (07:39)
[2022-03-23] MEDS ORDERED: ROCURONIUM 50 MG/5 ML VIAL IV ONE (10:14)
[2022-03-23] MEDS ORDERED: MIDAZOLAM HCL 2 MG/2 ML INJ ONE (10:14)
[2022-03-23] MEDS ORDERED: LIDOCAINE 2% MPF 5 ML VIAL ONE (10:14)
[2022-03-23] MEDS ORDERED: propofoL 200 MG/20 ML VIAL IV ONE (10:14)
[2022-03-23] MEDS ORDERED: FENTANYL CITR 100 MCG/2 ML ONE (10:14)
[2022-03-23] MEDS ORDERED: ONDANSETRON 4 MG/2 ML VIAL ONE (10:15)
[2022-03-23] MEDS ORDERED: BUPIVACAINE 0.25% PF 30 ML VIAL ONE (10:29)
[2022-03-23] MEDS ORDERED: KETOROLAC 30 MG/ML INJ ONE (12:07)
[2022-03-23] MEDS ORDERED: dexAMETHasone 10 MG/ML VIAL ONE (12:07)
--- NOTE | 2022-03-23 12:25 | RAD REPORT ---
EXAM DESCRIPTION: RAD - Fluoroscopy <1 Hour - 03/23/2022 12:09 pm CLINICAL HISTORY: SACRAL NERUO MODULATION COMPARISON: No comparisons FINDINGS: Fluoroscopy time: 1.6 minutes
[2022-03-23] MEDS ORDERED: HYDROCODONE/APAP 5/325 MG TAB PO PRN (12:58)
[2022-03-23] MEDS ORDERED: PROMETHAZINE INJ 25 MG/ML AMP IV PRN (12:58)
[2022-03-23] MEDS ORDERED: IBUPROFEN 200 MG TAB PO PRN (12:58)
--- NOTE | 2022-03-23 13:02 | P.BOP ---
Preoperative diagnosis: Refractory OAB Postoperative diagnosis: same Primary procedure: Stg1 SNM quadripolapr tined lead placement under fluoro Lf S3 Secondary procedure: programming Land Economist: NONE,NONE Estimated blood loss: min Specimen: none Findings: Lf S3 foramen, all 4 with good responses, same side pocket Anesthesia: General Complications: None Implants: tined qudripolapr interstim lead Transferred to: Recovery Room Condition: Good (care taken of left shoulder during positioning, pt pain free in postop)
[2022-03-23] MEDS ORDERED: ACETAMINOPHEN 500 MG TAB ONE (13:50)
[2022-03-23] MEDS ORDERED: ACETAMINOPHEN 500 MG TAB PO ONE (13:53)
[2022-03-23 15:55] VITALS: BP 129/72; TEMP 97.1; O2SAT 97
--- NOTE | 2022-04-01 22:53 | OP ---
Date of Procedure: 03/23/2022 Surgeon: Kathia Parikh MD Occupational Nurse: No assistants. Preoperative Diagnosis: Refractory overactive bladder. Postoperative Diagnosis: Refractory overactive bladder. Procedures Performed: Stage I InterStim placement of incision and implantation of tined quadripolar lead electrodes into the S3 foramen under fluoroscopic guidance for needle placement. Estimated Blood Loss: Minimal. Specimens: None. Complications: None. Drains: None. Implants: Tined quadripolar InterStim lead. Findings: Left S3 foramen was used. All 4 electrodes had good responses. Andre and plantar flexi on of the great toe using the external test stimulator. The side pocket was created on the left butt ock as well. Anesthesia: General. The patient was placed in prone position, transferred to the recovery room in stable condition. The patient had a left upper extremity injury and shoulder positioning was done while the patient was eric kened. The patient was pain free in the postop area after she was re-evaluated. Indications: The patient is a 61-year-old female with refractory overactive bladder, has undergone m edical therapy, a trial of at least 2 to 3 drugs and then underwent cystoscopy with no bladder tumor or other lesions and no bladder infections for her stress incontinence, had a mid urethral sling. He r incontinence is not improved overall despite Kegel's exercises. We discussed about Botox and SNM a nd she initially tried the Botox, did not improve her. She is now presenting for placement of the ne urostimulator. Also has back problems, had back surgery, lost weight after bariatric surgery. Medic ally in a good condition. Consented for stage I and stage II and brought in for stage I today. On 03/23, after patient was properly identified and placed in a prone position per the OR protocol, g eneral anesthesia was given. Pillows were placed under the lower abdomen to flatten the sacrum and u nder shins to allow the toes to dangle freely. She was prepped and draped with ChloraPrep solution. The C-arm was draped and moved into position for an AP image. This was to provide fluoroscopic john ing of the sacral region. This included marking of the outline of the sacrum, the SI joints, and sci atic notches and medial foraminal borders, and the sacral foramina. The C-arm was moved into the lat eral position to image the area of the sacral promontory to the coccyx. Then, once the position of t he S3 was noted on the skin, 2 cm above this, the entry point was injected with 1% lidocaine, 10 cc w as given all the way down to the periosteum. A 20-gauge 3-inch foramen needle was introduced at this site, which is 2 cm above the sciatic notch a nd 2 cm lateral to the sacral midline. Then, with the needle, the foraminal margins were palpated. Then, the S3 foramen was identified and penetrated. The depth of the needle was confirmed and adjust ed fluoroscopically with AP and lateral views. Proper needle position was confirmed by direct observ ation of the lifting of the perineum (andre) and observation of plantar flexion of the great toe. This was using the external test stimulator. Once the needle was left in place, foramen stylet was removed and bidirectional guide was placed and confirmed fluoroscopically. The needle was then removed carefully stabilizing the guide and incision was made to extend with an 11 blade superior to the directional guide through the fascial layer, the n the introducer sheath with the dilator was placed over the directional guide and directed into the foramina ensuring the radiopaque marker of the lead introducer did not extend beyond the anterior edg e of the sacrum. Under continuous fluoro at the very last part, dilator was unlocked and removed ashley ng with the directional guide. The lead was then placed through the introducer sheath to the first g uideline directing the tip at a 45-degree angle. Then position was checked fluoroscopically. It had to be just 1 more time to let it turn in an optimal direction. The lead was then further introduced until 3 electrodes were visible below the sacrum. Each electrode was tested for location of Andre and plantar flexion of the great toe. After satisfactory positioning was confirmed, the introducers on both the AP and lateral views, the introducer sheath was retracted under continuous fluoro, janna g sure that the lead was stabilized and remained at the optimal position. This deployed the tines in to the perisacral tissue. Further incision was made into the subcutaneous tissue posterior to the iliac crest and lateral to th e sacrum. Blunt dissection was continued until the gluteal fascia was identified and hemostasis was achieved with the Bovie. A tunneling tool with a straw was placed from the lead exit site subcutaneo usly to the incised pocket site. The tunneling tool was removed and the lead was fed through the str aw and pulled out at the pocket site. The lead was clamped of the body fluid and dried with a Ray-Te c and a protective boot was then placed over the lead. The lead was inserted into the temporary perc utaneous extension and the metal bands were aligned. The 4 set screws were tightened with the hex wr ench. The boot was pushed over the connection and silk ties were sutured to the boot grooves on the side of the connection, creating a U on the connector. A tunnel was made subcutaneously and exited to a puncture site above the buttock on the same side. T he percutaneous extension was placed through the straw and exposed and connected to the twist lock an d song cable. The wounds were then irrigated with antibiotic solution and water and closed with 3-0 chromic subcuti cular subcutaneous sutures and 4-0 Monocryl continuous running skin sutures. Counts were correct. T hen, Dermabond was placed and gauze was placed onto the wire and then the incisions were closed with Tegaderm after placing a 4 x 4 on top as well. The gauze was placed under the twist lock cable conne ctor. EBL was minimal. The patient was transferred to the recovery room in a satisfactory condition. in g the external test stimulator, the patient was programmed to the electrode of the optimum sensation and given instructions on utilizing the external test stimulator prior to discharge. A dilator was a lso handed. The dilator will be kept until return appointment to the office in 5 days to discuss the results of the test stimulation. The patient tolerated the procedure well. She will follow up with me as discussed in 5 days and stage II, if this works in a week. SHONNA/RADHIKA Voice ID: [id number] Report ID: [id number]
== END 2022-03-23 14:15 | disposition home or self-care (01) ==
LOC: OR 07:34
PROVIDERS: ATTEND Obstetrics & Gynecology
PROC: 01HY3MZ Insertion of Neurostimulator Lead into Peripheral Nerve, Percutaneous Approach (ICD-10-PCS; principal; 2022-03-23 09:30)
DX: N32.81 Overactive bladder (principal); E66.01 Morbid (severe) obesity due to excess calories; J45.909 Unspecified asthma, uncomplicated; Z20.822 Contact with and (suspected) exposure to COVID-19
CPT/HCPCS: 36415; 76000; 87811; 64561; J2704; J2001; J2250; J3010; J1100; J7120; J2405; J0690

== ENCOUNTER 2024-09-06 06:12 | Day surgery (SDC) | payer OTHER ==
[2024-09-05 11:31] LABS: Absolute Lymphocytes (CBC) 1.9 K/uL (0.7-4.9); Absolute Monocytes 0.3 K/uL (0.1-1.3); Absolute Neutrophil 2.9 K/uL (1.8-8.0); Basophils % 0.6 % (0-1.3); Eosinophils % 0.5 % (0-4.4); Hemoglobin 15.2 g/dL (12.0-15.0); Lymphocytes % 36.7 % (15.3-44.8); MCH 31.4 pg (27.0-35.0); MCHC 33.8 g/dL (32.0-36.0); MCV 92.8 fL (80-100); Monocytes % 5.9 % (3.3-12.3); Neutrophils % 56.3 % (41.7-73.7); Platelets 225 thou/uL (152-406); RBC Red Blood Cell Count 4.85 M/uL (3.86-4.86); Red Cell Distribution Width 13.7 % (12.1-15.2)
[2024-09-05 11:39] LABS: Anion Gap 7.7 mEq/L (5.0-15.0); Potassium 3.7 mEq/L (3.5-5.1)
[2024-09-06] MEDS: Ringers Lactate 1,000 ML IV ONE (06:30)
[2024-09-06] MEDS ORDERED: ROCURONIUM 50 MG/5 ML VIAL IV ONE (07:09)
[2024-09-06] MEDS ORDERED: MIDAZOLAM HCL 2 MG/2 ML INJ ONE (07:09)
[2024-09-06] MEDS ORDERED: FENTANYL CITR 100 MCG/2 ML ONE (07:09)
[2024-09-06] MEDS ORDERED: ONDANSETRON 4 MG/2 ML VIAL ONE (07:09)
[2024-09-06] MEDS ORDERED: propofoL 200 MG/20 ML VIAL IV ONE (07:09)
[2024-09-06] MEDS ORDERED: LIDOCAINE 2% MPF 5 ML VIAL ONE (07:10)
[2024-09-06] MEDS: CEFAZOLIN SODIUM 2 GM/VIAL ONE (07:34)
[2024-09-06] MEDS ORDERED: dexAMETHasone 4 MG/ML VIAL ONE (08:02)
[2024-09-06] MEDS: LIDOCAINE HCL/EPINEPHRINE 20 ML MDV ONE (08:06)
[2024-09-06] MEDS ORDERED: Mastisol Adhesive Liq ONE (08:28)
[2024-09-06] MEDS ORDERED: GLYCOPYRROLATE 0.2 MG/ML SYR ONE (08:35)
[2024-09-06] MEDS ORDERED: NEOSTIGMINE 1 MG/ML -10 ML VIAL ONE (08:36)
[2024-09-06] MEDS ORDERED: SUCCINYLCHOLINE 20 MG/ML (10 ML) IV ONE (09:00)
[2024-09-06] MEDS: ACETAMINOPHEN 325 MG TABLET ONE (09:40)
[2024-09-06 10:03] VITALS: BP 113/62; TEMP 97.1; O2SAT 98
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
== END 2024-09-06 10:00 | disposition home or self-care (01) ==
LOC: OR 06:12
PROVIDERS: ATTEND Obstetrics & Gynecology
PROC: 0JPT0MZ Removal of Stimulator Generator from Trunk Subcutaneous Tissue and Fascia, Open Approach (ICD-10-PCS; 2024-09-06)
PROC: 01PY0MZ Removal of Neurostimulator Lead from Peripheral Nerve, Open Approach (ICD-10-PCS; principal; 2024-09-06 07:30)
DX: Z46.6 Encounter for fitting and adjustment of urinary device (principal); Z98.84 Bariatric surgery status
CPT/HCPCS: 64585; 64595; 85025; 80048; 36415; J2704; J1100; J2710; J2003; J2250; J3010; J2405; J7120